=== PATIENT | female | born 1980 | race Caucasian/White ===

== ENCOUNTER 2017-06-10 00:52 | Emergency (ER) | payer SELFPAY ==
[~2017-06-10] VITALS: Ht 165.1 cm; Wt 125.2 kg
[~2017-06-10 00:52] MED LIST: ALBUTEROL0.5 % IN; AMOXIL500 MG OR; AUGMENTIN875 MG PO; BENTYL20 MG OR; CIPRO500 MG OR; ERYTHROMYCIN250 MG PO; FLEXERIL OR; FLINTSTONE1 OR; LORTAB 5 OR; LORTAB 7.5 OR; LORTAB5 OR; NAPROSYN500 MG PO; NEXIUM40 M1 OR; NO HOME MEDS; PRENATA7 OR; PREVACID30 M1 OR; PROAIR HFA IN; PYRIDIUM200 MG PO; SEASONALE OR; TRAMADOL HCL50 MG PO; ULTRACET OR; ULTRAM50 MG OR; ZOFRAN4 MG OR; ZPAK OR; [UNRECOGNIZED DRUG - SUPPLY] EX
[2017-06-10] MEDS ORDERED: NEURONTIN300 MG PO ×2 (01:01)
[2017-06-10] MEDS ORDERED: PERCOCET 10/31 COMBO PO (01:02)
[2017-06-10] MEDS ORDERED: REGLAN10 MG PO (01:02)
[2017-06-10] MEDS ORDERED: FLEXERIL PO (02:43)
[2017-06-10] MEDS ORDERED: ULTRAM50 M1 PO (02:43)
[2017-06-10 03:10] VITALS: BP 138/75
== END 2017-06-10 03:10 | disposition home or self-care (01) | DRG 552 ==
LOC: ED 00:52
DX: M47.812 Spondylosis without myelopathy or radiculopathy, cervical region (principal); F17.210 Nicotine dependence, cigarettes, uncomplicated; M47.816 Spondylosis without myelopathy or radiculopathy, lumbar region

== ENCOUNTER 2017-08-07 11:02 | Emergency (ER) | payer OTHER ==
[~2017-08-07] VITALS: Ht 165.1 cm; Wt 110.0 kg
[~2017-08-07 11:02] MED LIST changes: +FLEXERIL PO; +NEURONTIN300 MG PO; +PERCOCET 10/31 COMBO PO; +REGLAN10 MG PO; +ULTRAM50 M1 PO
[2017-08-07 11:51] LABS: URINE BILIRUBIN - DIPSTICK NEGATIVE (NEGATIVE); URINE BLOOD DIPSTICK LARGE (NEGATIVE); URINE COLOR YELLOW; URINE GLUCOSE - DIPSTICK NEGATIVE (NEGATIVE); URINE PH 7.5 (4.5-8.0); URINE PROTEIN - DIPSTICK 30 mg/dL (NEG-TRACE); URINE UROBILINOGEN - DIPSTICK 0.2 E.U./dL (0.2)
[2017-08-07 11:53] LABS: URINE CLARITY SL CLOUDY
[2017-08-07 11:54] LABS: URINE KETONE Negative (NEGATIVE); URINE LEUK ESTERASE SMALL (NEGATIVE); URINE NITRITE - DIPSTICK POSITIVE (Negative)
[2017-08-07 12:09] LABS: URINE BACTERIA MANY hpf; URINE EPITHELIAL CELLS MODERATE EPI/hpf (0-FEW); URINE WBC 20-50 WBC/hpf (0-5)
[2017-08-07] MEDS ORDERED: PYRIDIUM200 MG PO (12:39)
[2017-08-07] MEDS ORDERED: KEFLEX500 M1 PO (12:39)
[2017-08-07 13:26] VITALS: BP 139/94
== END 2017-08-07 13:27 | disposition home or self-care (01) | DRG 690 ==
LOC: ED 11:02
DX: N39.0 Urinary tract infection, site not specified (principal); B96.20 Unspecified Escherichia coli [E. coli] as the cause of diseases classified elsewhere; F17.210 Nicotine dependence, cigarettes, uncomplicated

== ENCOUNTER 2017-08-25 11:40 | Emergency (ER) | payer OTHER ==
[~2017-08-25] VITALS: Ht 162.6 cm; Wt 119.4 kg
[~2017-08-25 11:40] MED LIST changes: +KEFLEX500 M1 PO
[2017-08-25 13:05] LABS: IMMATURE GRANULOCYTES 0.4 % (0.0-1.0); MEAN CORPUSCULAR HGB 30.6 pG CALC (26.0-32.0); MEAN CORPUSCULAR HGB CONC 33.6 g/L CALC (32.0-36.0); NEUT# 6.78 thou/uL (2.00-7.15); RED BLOOD COUNT 4.9 mill/uL (4.20-5.60); RED CELL DISTRI WIDTH 12.7 % (11.5-15.5)
[2017-08-25 13:06] LABS: URINE BILIRUBIN - DIPSTICK NEGATIVE (NEGATIVE); URINE BLOOD DIPSTICK TRACE-LYSED (NEGATIVE); URINE COLOR YELLOW; URINE GLUCOSE - DIPSTICK NEGATIVE (NEGATIVE); URINE KETONE NEGATIVE (NEGATIVE); URINE LEUK ESTERASE NEGATIVE (NEGATIVE); URINE NITRITE - DIPSTICK NEGATIVE (Negative); URINE PROTEIN - DIPSTICK NEGATIVE (NEG-TRACE); URINE SPECIFIC GRAVITY <=1.005; URINE UROBILINOGEN - DIPSTICK 0.2 E.U./dL (0.2)
[2017-08-25 13:08] LABS: HEMATOCRIT 44.6 % (37.0-47.0); URINE CLARITY CLEAR
[2017-08-25 13:11] LABS: ALBUMIN 4.1 g/dL (3.2-5.0); ALKALINE PHOSPHATASE 62 u/l (38-126); ANION GAP 17 (6-22 (CALC)); BILIRUBIN, TOTAL 0.6 mg/dL (0.0-1.4); BUN 12 mg/dL (7-17); BUN/CREATININE RATIO 19 (12-20 (CALC)); CARBON DIOXIDE 22 mmol/l (22-30); CHLORIDE 108 mmol/l (95-108); CREATININE 0.7 mg/dL (0.5-1.0); GFR > 60 ML/MIN (>=60 (CALC)); GFR FOR AFR.AMER. > 60 ML/MIN (>=60 (CALC)); LIPASE 21 u/l (23-300); POTASSIUM 3.9 mmol/l (3.5-5.1); SGOT/AST 29 u/l (14-36); SGPT/ALT 43 u/l (9-52); SODIUM 143 mmol/l (137-146); TOTAL PROTEIN 7.4 g/dL (6.3-8.2)
[2017-08-25] MEDS ORDERED: REGLAN10 MG PO (14:05)
[2017-08-25 14:10] VITALS: BP 131/77
== END 2017-08-25 14:15 | disposition home or self-care (01) | DRG 392 ==
LOC: ED 11:40
PROVIDERS: Family Medicine
DX: K29.70 Gastritis, unspecified, without bleeding (principal); R10.13 Epigastric pain; R10.33 Periumbilical pain; R11.0 Nausea
CPT/HCPCS: Q9967; S0164

== ENCOUNTER 2017-09-27 21:10 | Emergency (ER) | payer OTHER ==
[~2017-09-27] VITALS: Ht 162.6 cm; Wt 120.2 kg
[2017-09-27] MEDS ORDERED: PERCOCET 10/31 COMBO PO (21:24)
[2017-09-27] MEDS ORDERED: FLEXERIL PO (21:43)
[2017-09-27 21:50] VITALS: BP 124/86
== END 2017-09-27 21:58 | disposition home or self-care (01) | DRG 563 ==
LOC: ED 21:10
DX: S29.012A Strain of muscle and tendon of back wall of thorax, initial encounter (principal); K75.81 Nonalcoholic steatohepatitis (NASH); K58.9 Irritable bowel syndrome, unspecified; F17.210 Nicotine dependence, cigarettes, uncomplicated; X50.0XXA Overexertion from strenuous movement or load, initial encounter; X50.9XXA Other and unspecified overexertion or strenuous movements or postures, initial encounter

== ENCOUNTER 2017-10-24 22:16 | Emergency (ER) | payer OTHER ==
[~2017-10-24] VITALS: Ht 162.6 cm; Wt 120.0 kg
[2017-10-25] MEDS ORDERED: FLEXERIL5 M1 PO (00:21)
[2017-10-25 00:33] VITALS: BP 129/68
[2017-10-26] MEDS ORDERED: PROPRANOLOL HCL20 MG PO (13:49)
== END 2017-10-25 00:42 | disposition home or self-care (01) ==
LOC: ED 22:16
DX: M54.12 Radiculopathy, cervical region (principal)

== ENCOUNTER 2017-10-26 13:30 | Emergency (ER) | payer OTHER ==
[~2017-10-26] VITALS: Ht 162.6 cm; Wt 120.5 kg
[~2017-10-26 13:30] MED LIST changes: +FLEXERIL5 M1 PO
[2017-10-26] MEDS ORDERED: PROPRANOLOL HCL20 MG PO (13:49)
[2017-10-26 14:23] LABS: URINE BILIRUBIN - DIPSTICK NEGATIVE (NEGATIVE); URINE BLOOD DIPSTICK NEGATIVE (NEGATIVE); URINE COLOR YELLOW; URINE GLUCOSE - DIPSTICK NEGATIVE (NEGATIVE); URINE KETONE NEGATIVE (NEGATIVE); URINE LEUK ESTERASE NEGATIVE (NEGATIVE); URINE NITRITE - DIPSTICK NEGATIVE (Negative); URINE PROTEIN - DIPSTICK NEGATIVE (NEG-TRACE); URINE SPECIFIC GRAVITY 1.025
[2017-10-26 14:24] LABS: URINE CLARITY CLEAR
[2017-10-26 14:31] LABS: BARBITURATES NEGATIVE (NEGATIVE); COCAINE NEGATIVE (NEGATIVE); METHADONE NEGATIVE (NEGATIVE); OXCYCODONE NEGATIVE (NEGATIVE); TETRAHYDROCANNABIONOL NEGATIVE (NEGATIVE); TRICYLIC ANTIDEPRESSANTS NEGATIVE (NEGATIVE)
[2017-10-26 14:43] LABS: HEMATOCRIT 41.9 % (37.0-47.0); HEMOGLOBIN 13.9 g/dl (12.0-16.0); IMMATURE GRANULOCYTES 0.1 % (0.0-5.0); MEAN CELL VOLUME 92.1 fL CALC (80.0-100.0); MEAN CORPUSCULAR HGB 30.5 pG CALC (26.0-32.0); MEAN CORPUSCULAR HGB CONC 33.2 g/L CALC (32.0-36.0); NEUT# 4.35 thou/uL (2.00-7.15); RED BLOOD COUNT 4.55 mill/uL (4.20-5.60)
[2017-10-26 14:49] LABS: ALKALINE PHOSPHATASE 47 u/l (38-126); BILIRUBIN, TOTAL 1.2 mg/dL (0.0-1.4); BUN 15 mg/dL (7-17); BUN/CREATININE RATIO 23 (12-20 (CALC)); CARBON DIOXIDE 24 mmol/l (22-30); CHLORIDE 108 mmol/l (95-108); CREATININE 0.6 mg/dL (0.5-1.0); GFR > 60 ML/MIN (>=60 (CALC)); GFR FOR AFR.AMER. > 60 ML/MIN (>=60 (CALC)); SGOT/AST 46 u/l (14-36); SGPT/ALT 34 u/l (9-52); SODIUM 140 mmol/l (137-146); TOTAL PROTEIN 6.9 g/dL (6.3-8.2)
[2017-10-26 14:57] LABS: MYOGLOBIN 20 ng/mL (0 - 62)
[2017-10-26 15:00] LABS: ANION GAP 13 (6-22 (CALC))
[2017-10-26 15:52] VITALS: BP 108/63
[2017-10-26 16:42] LABS: POTASSIUM 4.7 mmol/l (3.5-5.1)
== END 2017-10-26 15:54 | disposition home or self-care (01) ==
LOC: ED 13:30
DX: R05 Cough (principal); R09.81 Nasal congestion; R42 Dizziness and giddiness; F17.210 Nicotine dependence, cigarettes, uncomplicated

== ENCOUNTER 2017-12-31 22:59 | Emergency (ER) | payer MEDICAID ==
[~2017-12-31] VITALS: Ht 162.6 cm; Wt 122.7 kg
[~2017-12-31 22:59] MED LIST changes: +PROPRANOLOL HCL20 MG PO
[2017-12-31] MEDS ORDERED: KLONOPIN0.5 MG PO (23:09)
[2018-01-01 00:01] LABS: INFLUENZA A NONE DETECTED (NONE DETECT); INFLUENZA B NONE DETECTED (NONE DETECT)
[2018-01-01] MEDS ORDERED: AMOXICILLIN500 MG PO (00:18)
[2018-01-01] MEDS ORDERED: ROBITUSSIN AC10 ML PO (00:18)
[2018-01-01 00:20] VITALS: BP 135/80
== END 2018-01-01 00:26 | disposition home or self-care (01) ==
LOC: ED 22:59
PROVIDERS: Emergency Medicine
DX: J02.9 Acute pharyngitis, unspecified (principal); J06.9 Acute upper respiratory infection, unspecified; R05 Cough; F17.210 Nicotine dependence, cigarettes, uncomplicated; R50.9 Fever, unspecified

== ENCOUNTER 2018-01-19 07:51 | Emergency (ER) | payer MEDICAID ==
[~2018-01-19] VITALS: Ht 162.6 cm; Wt 118.2 kg
[~2018-01-19 07:51] MED LIST changes: +AMOXICILLIN500 MG PO; +KLONOPIN0.5 MG PO; +ROBITUSSIN AC10 ML PO
[2018-01-19] MEDS ORDERED: PAXIL40 MG PO (08:03)
[2018-01-19] MEDS ORDERED: SINEQUAN10 MG PO (08:03)
[2018-01-19] MEDS ORDERED: VOLTAREN1%GEL TOP (08:41)
[2018-01-19 08:45] VITALS: BP 114/69
== END 2018-01-19 09:02 | disposition home or self-care (01) ==
LOC: ED 07:51
DX: S46.911A Strain of unspecified muscle, fascia and tendon at shoulder and upper arm level, right arm, initial encounter (principal); X58.XXXA Exposure to other specified factors, initial encounter; Y93.89 Activity, other specified; Y92.238 Other place in hospital as the place of occurrence of the external cause

== ENCOUNTER 2018-05-17 09:33 | Emergency (ER) | payer MEDICAID ==
[~2018-05-17] VITALS: Ht 162.6 cm; Wt 1000.0 kg
[~2018-05-17 09:33] MED LIST changes: +AUGMENTIN500TAB PO; +CELEBREX200 M1; +HYDROCODONE/ACE1 TAB PO; +MIRALAX3350 N1 PO; +PAXIL40 MG PO; +PROVENTIL108 MCG/AC; +SINEQUAN10 MG PO; +VOLTAREN1%GEL TOP
[2018-05-17] MEDS ORDERED: PAXIL40 MG PO (10:05)
[2018-05-17] MEDS ORDERED: DOXEPIN HCL25 MG PO (10:06)
[2018-05-17] MEDS ORDERED: KLONOPIN1 MG PO (10:06)
[2018-05-17] MEDS ORDERED: ADVAIR DISK1 IN (10:14)
[2018-05-17] MEDS ORDERED: CELECOXIB200 MG PO (10:15)
[2018-05-17] MEDS ORDERED: DIFLUCAN150 MG PO (10:26)
[2018-05-17] MEDS ORDERED: TORADOL PO (10:26)
[2018-05-17] MEDS ORDERED: METRONIDAZOL500 MG PO (10:26)
[2018-05-17] MEDS ORDERED: CORTISPORIN OTI10 M2 AS (10:26)
[2018-05-17 10:36] VITALS: BP 130/76
[2018-06-11] MEDS ORDERED: AMBIEN5 MG PO (09:09)
[2018-06-11] MEDS ORDERED: HYDROCODONE/ACE1 TAB PO (09:31)
== END 2018-05-17 10:45 | disposition home or self-care (01) ==
LOC: ED 09:33
DX: H92.02 Otalgia, left ear (principal); N76.0 Acute vaginitis; K75.81 Nonalcoholic steatohepatitis (NASH); F17.200 Nicotine dependence, unspecified, uncomplicated; Z85.41 Personal history of malignant neoplasm of cervix uteri

== ENCOUNTER → 2018-06-11 | Outpatient (REF) | payer MEDICAID ==
[~2018-06-11] MED LIST changes: +ADVAIR DISK1 IN; +AMBIEN5 MG PO; +CELECOXIB200 MG PO; +CORTISPORIN OTI10 M2 AS; +DIFLUCAN150 MG PO; +DOXEPIN HCL25 MG PO; +KLONOPIN1 MG PO; +METRONIDAZOL500 MG PO; +TORADOL PO
[2018-06-11 09:13] VITALS: BP 147/82
== END | disposition home or self-care (01) | DRG 951 ==
LOC: PAIN/MGT 08:50
PROVIDERS: ATTEND Anesthesiology Pain Medicine
DX: Z09 Encounter for follow-up examination after completed treatment for conditions other than malignant neoplasm (principal)

== ENCOUNTER 2018-06-26 23:54 | Emergency (ER) | payer OTHER ==
[~2018-06-26] VITALS: Ht 162.6 cm; Wt 120.0 kg
[2018-06-27 00:45] LABS: HEMATOCRIT 40.4 % (37.0-47.0); HEMOGLOBIN 13.3 g/dl (12.0-16.0); IMMATURE GRANULOCYTES 0.4 % (0.0-5.0); MEAN CELL VOLUME 92.4 fL CALC (80.0-100.0); MEAN CORPUSCULAR HGB 30.4 pG CALC (26.0-32.0); MEAN CORPUSCULAR HGB CONC 32.9 g/L CALC (32.0-36.0); NEUT# 8.6 thou/uL (2.00-7.15); RED BLOOD COUNT 4.37 mill/uL (4.20-5.60); RED CELL DISTRI WIDTH 12.7 % (11.5-15.5)
[2018-06-27 01:00] LABS: ALBUMIN 3.9 g/dL (3.2-5.0); ALKALINE PHOSPHATASE 61 u/l (38-126); ANION GAP 14 (6-22 (CALC)); BILIRUBIN, TOTAL 0.2 mg/dL (0.0-1.4); BUN 16 mg/dL (7-17); BUN/CREATININE RATIO 21 (12-20 (CALC)); CARBON DIOXIDE 23 mmol/l (22-30); CHLORIDE 109 mmol/l (95-108); CREATININE 0.8 mg/dL (0.5-1.0); GFR > 60 ML/MIN (>=60 (CALC)); GFR FOR AFR.AMER. > 60 ML/MIN (>=60 (CALC)); POTASSIUM 3.8 mmol/l (3.5-5.1); SGOT/AST 17 u/l (14-36); SODIUM 142 mmol/l (137-146); TOTAL PROTEIN 6.4 g/dL (6.3-8.2)
[2018-06-27 11:30] VITALS: BP 137/65
== END 2018-06-27 11:30 | disposition short-term general hospital (02) ==
LOC: ED 23:54
PROVIDERS: Emergency Medicine
DX: S86.912A Strain of unspecified muscle(s) and tendon(s) at lower leg level, left leg, initial encounter (principal); M79.18 Myalgia, other site; R22.42 Localized swelling, mass and lump, left lower limb; X50.1XXA Overexertion from prolonged static or awkward postures, initial encounter; W01.0XXA Fall on same level from slipping, tripping and stumbling without subsequent striking against object, initial encounter; Y92.009 Unspecified place in unspecified non-institutional (private) residence as the place of occurrence of the external cause

== ENCOUNTER 2018-09-22 19:36 | Emergency (ER) | payer MEDICAID ==
[~2018-09-22] VITALS: Ht 162.6 cm; Wt 121.0 kg
[~2018-09-22 19:36] MED LIST changes: +DEPO-PROVER150 MG/ML IM
[2018-09-22 20:15] LABS: URINE BILIRUBIN - DIPSTICK NEGATIVE (NEGATIVE); URINE BLOOD DIPSTICK NEGATIVE (NEGATIVE); URINE COLOR YELLOW; URINE GLUCOSE - DIPSTICK NEGATIVE (NEGATIVE); URINE KETONE NEGATIVE (NEGATIVE); URINE LEUK ESTERASE NEGATIVE (NEGATIVE); URINE NITRITE - DIPSTICK NEGATIVE (Negative); URINE PROTEIN - DIPSTICK NEGATIVE (NEG-TRACE)
[2018-09-22 20:19] LABS: HEMATOCRIT 43.5 % (37.0-47.0); HEMOGLOBIN 14.3 g/dl (12.0-16.0); IMMATURE GRANULOCYTES 0.4 % (0.0-5.0); MEAN CORPUSCULAR HGB 30.2 pG CALC (26.0-32.0); MEAN CORPUSCULAR HGB CONC 32.9 g/L CALC (32.0-36.0); NEUT# 6.61 thou/uL (2.00-7.15); RED BLOOD COUNT 4.73 mill/uL (4.20-5.60); RED CELL DISTRI WIDTH 12.7 % (11.5-15.5)
[2018-09-22 20:28] LABS: ALBUMIN 4.3 g/dL (3.2-5.0); ALKALINE PHOSPHATASE 63 u/l (38-126); AMYLASE 63 u/l (30-110); ANION GAP 14 (6-22 (CALC)); BILIRUBIN, TOTAL 0.4 mg/dL (0.0-1.4); BUN 14 mg/dL (7-17); BUN/CREATININE RATIO 22 (12-20 (CALC)); CARBON DIOXIDE 23 mmol/l (22-30); CHLORIDE 108 mmol/l (95-108); CREATININE 0.6 mg/dL (0.5-1.0); GFR > 60 ML/MIN (>=60 (CALC)); GFR FOR AFR.AMER. > 60 ML/MIN (>=60 (CALC)); LIPASE 25 u/l (23-300); POTASSIUM 3.9 mmol/l (3.5-5.1); SGOT/AST 24 u/l (14-36); SODIUM 142 mmol/l (137-146); TOTAL PROTEIN 7.1 g/dL (6.3-8.2)
[2018-09-22] MEDS ORDERED: PROTONIX40 MG PO (22:48)
[2018-09-22 23:00] VITALS: BP 123/76
== END 2018-09-22 23:05 | disposition home or self-care (01) ==
LOC: ED 19:36
PROVIDERS: Emergency Medicine
DX: R10.10 Upper abdominal pain, unspecified (principal); K86.1 Other chronic pancreatitis; K75.81 Nonalcoholic steatohepatitis (NASH); F17.210 Nicotine dependence, cigarettes, uncomplicated; R11.2 Nausea with vomiting, unspecified

== ENCOUNTER 2018-10-06 12:13 | Emergency (ER) | payer OTHER ==
[~2018-10-06] VITALS: Ht 162.6 cm; Wt 110.0 kg
[~2018-10-06 12:13] MED LIST changes: +PROTONIX40 MG PO
[2018-10-06] MEDS ORDERED: ULTRAM50 M1 PO (12:43)
[2018-10-06 12:44] VITALS: BP 144/77
== END 2018-10-06 12:58 | disposition home or self-care (01) ==
LOC: ED 12:13
DX: S50.11XA Contusion of right forearm, initial encounter (principal); F17.200 Nicotine dependence, unspecified, uncomplicated; W01.198A Fall on same level from slipping, tripping and stumbling with subsequent striking against other object, initial encounter; Y92.009 Unspecified place in unspecified non-institutional (private) residence as the place of occurrence of the external cause

== ENCOUNTER 2018-10-24 17:39 | Emergency (ER) | payer MEDICAID ==
[~2018-10-24] VITALS: Ht 162.6 cm; Wt 125.0 kg
[2018-10-24 18:03] LABS: GFR > 60 ML/MIN (>=60 (CALC)); GFR FOR AFR.AMER. > 60 ML/MIN (>=60 (CALC))
[2018-10-24 18:05] LABS: HEMATOCRIT 43.1 % (37.0-47.0); HEMOGLOBIN 14.2 g/dl (12.0-16.0); IMMATURE GRANULOCYTES 0.3 % (0.0-5.0); MEAN CELL VOLUME 91.3 fL CALC (80.0-100.0); MEAN CORPUSCULAR HGB 30.1 pG CALC (26.0-32.0); MEAN CORPUSCULAR HGB CONC 32.9 g/L CALC (32.0-36.0); NEUT# 4.86 thou/uL (2.00-7.15); RED BLOOD COUNT 4.72 mill/uL (4.20-5.60); RED CELL DISTRI WIDTH 12.6 % (11.5-15.5)
[2018-10-24 18:19] LABS: ALBUMIN 4.3 g/dL (3.2-5.0); ALKALINE PHOSPHATASE 58 u/l (38-126); ANION GAP 13 (6-22 (CALC)); BUN 12 mg/dL (7-17); BUN/CREATININE RATIO 13 (12-20 (CALC)); CARBON DIOXIDE 25 mmol/l (22-30); CHLORIDE 108 mmol/l (95-108); CREATININE 0.9 mg/dL (0.5-1.0); GFR > 60 ML/MIN (>=60 (CALC)); GFR FOR AFR.AMER. > 60 ML/MIN (>=60 (CALC)); POTASSIUM 3.7 mmol/l (3.5-5.1); SGOT/AST 19 u/l (14-36); SODIUM 143 mmol/l (137-146); TOTAL PROTEIN 7.7 g/dL (6.3-8.2)
[2018-10-24 18:21] LABS: BILIRUBIN, TOTAL 0.2 mg/dL (0.0-1.4)
[2018-10-24 18:24] LABS: ACT PARTIAL THROMBO TIME 24.7 SECONDS (20.0-32.5)
[2018-10-24 18:31] LABS: MYOGLOBIN 19 ng/mL (0 - 62)
[2018-10-24 19:53] LABS: URINE BILIRUBIN - DIPSTICK NEGATIVE (NEGATIVE); URINE BLOOD DIPSTICK NEGATIVE (NEGATIVE); URINE COLOR YELLOW; URINE GLUCOSE - DIPSTICK NEGATIVE (NEGATIVE); URINE KETONE NEGATIVE (NEGATIVE); URINE LEUK ESTERASE NEGATIVE (NEGATIVE); URINE NITRITE - DIPSTICK NEGATIVE (Negative); URINE PH 5.5 (4.5-8.0); URINE PROTEIN - DIPSTICK NEGATIVE (NEG-TRACE); URINE UROBILINOGEN - DIPSTICK 0.2 E.U./dL (0.2)
[2018-10-24 20:42] VITALS: BP 107/55
== END 2018-10-24 20:33 | disposition short-term general hospital (02) ==
LOC: ED 17:39
PROVIDERS: Family Medicine
DX: R47.81 Slurred speech (principal); R53.1 Weakness; R29.810 Facial weakness; M79.601 Pain in right arm; Z85.41 Personal history of malignant neoplasm of cervix uteri; K58.9 Irritable bowel syndrome, unspecified; F17.200 Nicotine dependence, unspecified, uncomplicated
CPT/HCPCS: Q9967

== ENCOUNTER 2018-10-28 22:12 | Emergency (ER) | payer MEDICAID ==
[~2018-10-28] VITALS: Ht 162.6 cm; Wt 122.7 kg
[2018-10-28] MEDS ORDERED: FIORICET PO (23:31)
[2018-10-28 23:47] LABS: URINE BILIRUBIN - DIPSTICK NEGATIVE (NEGATIVE); URINE BLOOD DIPSTICK NEGATIVE (NEGATIVE); URINE COLOR YELLOW; URINE GLUCOSE - DIPSTICK NEGATIVE (NEGATIVE); URINE KETONE NEGATIVE (NEGATIVE); URINE LEUK ESTERASE NEGATIVE (NEGATIVE); URINE NITRITE - DIPSTICK NEGATIVE (Negative); URINE PROTEIN - DIPSTICK NEGATIVE (NEG-TRACE); URINE UROBILINOGEN - DIPSTICK 0.2 E.U./dL (0.2)
[2018-10-28 23:51] VITALS: BP 128/69
== END 2018-10-28 23:51 | disposition home or self-care (01) ==
LOC: ED 22:12
PROVIDERS: Emergency Medicine
DX: G43.909 Migraine, unspecified, not intractable, without status migrainosus (principal); F17.200 Nicotine dependence, unspecified, uncomplicated; Z86.73 Personal history of transient ischemic attack (TIA), and cerebral infarction without residual deficits

== ENCOUNTER 2019-01-06 07:41 | Emergency (ER) | payer OTHER ==
[~2019-01-06] VITALS: Ht 162.6 cm; Wt 110.0 kg
[~2019-01-06 07:41] MED LIST changes: +FIORICET PO; +IMITREX100 M1 PO; +PERCOCET1 TA4 PO
[2019-01-06] MEDS ORDERED: AMOXICILLIN500 M2 PO (08:36)
[2019-01-06] MEDS ORDERED: DIFLUCAN150 MG PO (08:46)
[2019-01-06 09:00] VITALS: BP 123/66
[2019-01-07] MEDS ORDERED: PERCOCET1 TA4 PO (09:46)
[2019-01-07] MEDS ORDERED: DECADRON4 MG PO (11:28)
== END 2019-01-06 09:00 | disposition home or self-care (01) ==
LOC: ED 07:41
DX: J02.0 Streptococcal pharyngitis (principal); K75.81 Nonalcoholic steatohepatitis (NASH); F17.200 Nicotine dependence, unspecified, uncomplicated; Z86.73 Personal history of transient ischemic attack (TIA), and cerebral infarction without residual deficits
CPT/HCPCS: J0561

== ENCOUNTER 2019-01-08 17:50 | Emergency (ER) | payer OTHER ==
[~2019-01-08] VITALS: Ht 162.6 cm; Wt 120.0 kg
[~2019-01-08 17:50] MED LIST changes: +AMOXICILLIN500 M2 PO; +DECADRON4 MG PO
[2019-01-08] MEDS ORDERED: FAMOTIDINE40 M1 PO (18:21)
[2019-01-08] MEDS ORDERED: INDERAL LA60 MG PO (18:21)
[2019-01-08] MEDS ORDERED: REMERON15 MG PO (18:22)
[2019-01-08] MEDS ORDERED: KLONOPIN1 MG PO (18:22)
[2019-01-08] MEDS ORDERED: MIRALAX3350 N1 PO (18:23)
[2019-01-08] MEDS ORDERED: FLEXERIL PO (18:23)
[2019-01-08] MEDS ORDERED: CELEBREX200 MG PO (18:24)
[2019-01-08] MEDS ORDERED: ADVAIR DISK1 INH (18:24)
[2019-01-08] MEDS ORDERED: ALBUTERO3 IN (18:24)
[2019-01-08] MEDS ORDERED: GABAPENTIN400 M2 PO (18:25)
[2019-01-08] MEDS ORDERED: REGLAN10 MG PO (18:26)
[2019-01-08 18:33] LABS: HEMATOCRIT 39.6 % (37.0-47.0); HEMOGLOBIN 13.1 g/dl (12.0-16.0); IMMATURE GRANULOCYTES 0.7 % (0.0-5.0); MEAN CELL VOLUME 90.4 fL CALC (80.0-100.0); MEAN CORPUSCULAR HGB 29.9 pG CALC (26.0-32.0); MEAN CORPUSCULAR HGB CONC 33.1 g/L CALC (32.0-36.0); NEUT# 14.59 thou/uL (2.00-7.15); RED BLOOD COUNT 4.38 mill/uL (4.20-5.60)
[2019-01-08 18:42] LABS: ALBUMIN 4.3 g/dL (3.2-5.0); ALKALINE PHOSPHATASE 85 u/l (38-126); AMYLASE 32 u/l (30-110); ANION GAP 15 (6-22 (CALC)); BILIRUBIN, TOTAL 0.4 mg/dL (0.0-1.4); BUN 15 mg/dL (7-17); BUN/CREATININE RATIO 21 (12-20 (CALC)); CARBON DIOXIDE 22 mmol/l (22-30); CHLORIDE 108 mmol/l (95-108); CREATININE 0.7 mg/dL (0.5-1.0); GFR > 60 ML/MIN (>=60 (CALC)); GFR FOR AFR.AMER. > 60 ML/MIN (>=60 (CALC)); LIPASE 16 u/l (23-300); POTASSIUM 4.1 mmol/l (3.5-5.1); SGOT/AST 22 u/l (14-36); SODIUM 141 mmol/l (137-146); TOTAL PROTEIN 7.4 g/dL (6.3-8.2)
[2019-01-08 18:59] LABS: URINE BLOOD DIPSTICK MODERATE (NEGATIVE); URINE GLUCOSE - DIPSTICK NEGATIVE (NEGATIVE); URINE KETONE TRACE mg/dL (NEGATIVE); URINE LEUK ESTERASE NEGATIVE (NEGATIVE); URINE NITRITE - DIPSTICK NEGATIVE (Negative); URINE PROTEIN - DIPSTICK 30 mg/dL (NEG-TRACE); URINE SPECIFIC GRAVITY >=1.030
[2019-01-08 19:00] LABS: URINE BILIRUBIN - DIPSTICK NEGATIVE (NEGATIVE); URINE COLOR AMBER
[2019-01-08 19:13] LABS: URINE CALCIUM OXALATE CRYSTALS FEW lpf; URINE SQUAMOUS EPITHELIAL CELL FEW EPI/hpf (0-FEW); URINE WBC 0-2 WBC/hpf (0-5)
[2019-01-08 19:27] LABS: COCAINE NEGATIVE (NEGATIVE); METHADONE NEGATIVE (NEGATIVE); TETRAHYDROCANNABIONOL NEGATIVE (NEGATIVE)
[2019-01-08 19:28] LABS: BARBITURATES NEGATIVE (NEGATIVE); OXCYCODONE POSITIVE (NEGATIVE); TRICYLIC ANTIDEPRESSANTS POSITIVE (NEGATIVE)
[2019-01-08 19:44] LABS: TSH, 3RD GENERATION 0.27 uIU/mL (0.47 - 4.68)
[2019-01-08] MEDS ORDERED: ROBITUSSIN AC10 ML PO (20:22)
[2019-01-08 21:20] VITALS: BP 130/60
== END 2019-01-08 21:20 | disposition home or self-care (01) ==
LOC: ED 17:50
PROVIDERS: Emergency Medicine; Family Medicine
DX: R00.2 Palpitations (principal); J02.9 Acute pharyngitis, unspecified; F17.210 Nicotine dependence, cigarettes, uncomplicated

== ENCOUNTER 2019-01-12 17:53 | Emergency (ER) | payer OTHER ==
[~2019-01-12] VITALS: Ht 162.6 cm; Wt 121.0 kg
[~2019-01-12 17:53] MED LIST changes: +ADVAIR DISK1 INH; +ALBUTERO3 IN; +CELEBREX200 MG PO; +FAMOTIDINE40 M1 PO; +GABAPENTIN400 M2 PO; +INDERAL LA60 MG PO; +REMERON15 MG PO
[2019-01-12] MEDS ORDERED: CLINDAMYCIN300 M1 PO (19:03)
[2019-01-12 19:10] VITALS: BP 159/82
== END 2019-01-12 19:11 | disposition home or self-care (01) ==
LOC: ED 17:53
DX: R51 Headache (principal); L02.91 Cutaneous abscess, unspecified; K75.81 Nonalcoholic steatohepatitis (NASH); F17.210 Nicotine dependence, cigarettes, uncomplicated; Z86.14 Personal history of Methicillin resistant Staphylococcus aureus infection; Z86.73 Personal history of transient ischemic attack (TIA), and cerebral infarction without residual deficits

== ENCOUNTER 2019-01-17 07:59 | Emergency (ER) | payer OTHER ==
[~2019-01-17] VITALS: Ht 162.6 cm; Wt 125.0 kg
[~2019-01-17 07:59] MED LIST changes: +CLINDAMYCIN300 M1 PO
[2019-01-17 08:20] LABS: HEMATOCRIT 41.4 % (37.0-47.0); HEMOGLOBIN 13.6 g/dl (12.0-16.0); IMMATURE GRANULOCYTES 0.4 % (0.0-5.0); MEAN CORPUSCULAR HGB 29.6 pG CALC (26.0-32.0); MEAN CORPUSCULAR HGB CONC 32.9 g/L CALC (32.0-36.0); NEUT# 6.88 thou/uL (2.00-7.15); RED BLOOD COUNT 4.6 mill/uL (4.20-5.60); RED CELL DISTRI WIDTH 13.1 % (11.5-15.5)
[2019-01-17 08:41] LABS: ANION GAP 14 (6-22 (CALC)); BUN 13 mg/dL (7-17); BUN/CREATININE RATIO 17 (12-20 (CALC)); CARBON DIOXIDE 23 mmol/l (22-30); CHLORIDE 106 mmol/l (95-108); CREATININE 0.8 mg/dL (0.5-1.0); GFR > 60 ML/MIN (>=60 (CALC)); GFR FOR AFR.AMER. > 60 ML/MIN (>=60 (CALC)); POTASSIUM 4.5 mmol/l (3.5-5.1); SODIUM 138 mmol/l (137-146)
[2019-01-17] MEDS ORDERED: GABAPENTIN100 MG PO (12:10)
[2019-01-17] MEDS ORDERED: ONDANSETRON4 MG PO (13:45)
[2019-01-17 14:23] VITALS: BP 108/57
== END 2019-01-17 14:23 | disposition home or self-care (01) ==
LOC: ED 07:59
PROVIDERS: Family Medicine
DX: K29.70 Gastritis, unspecified, without bleeding (principal); F17.210 Nicotine dependence, cigarettes, uncomplicated
CPT/HCPCS: J1610; Q9967

== ENCOUNTER 2019-01-23 22:00 | Emergency (ER) | payer OTHER ==
[~2019-01-23] VITALS: Ht 162.6 cm; Wt 100.0 kg
[~2019-01-23 22:00] MED LIST changes: +GABAPENTIN100 MG PO; +ONDANSETRON4 MG PO
[2019-01-23 23:10] LABS: URINE BILIRUBIN - DIPSTICK NEGATIVE (NEGATIVE); URINE BLOOD DIPSTICK NEGATIVE (NEGATIVE); URINE COLOR YELLOW; URINE GLUCOSE - DIPSTICK NEGATIVE (NEGATIVE); URINE KETONE NEGATIVE (NEGATIVE); URINE LEUK ESTERASE NEGATIVE (NEGATIVE); URINE NITRITE - DIPSTICK NEGATIVE (Negative); URINE PROTEIN - DIPSTICK NEGATIVE (NEG-TRACE); URINE SPECIFIC GRAVITY >=1.030; URINE UROBILINOGEN - DIPSTICK 0.2 E.U./dL (0.2)
[2019-01-23 23:30] VITALS: BP 138/82
== END 2019-01-23 23:33 | disposition home or self-care (01) ==
LOC: ED 22:00
PROVIDERS: Emergency Medicine
DX: K43.9 Ventral hernia without obstruction or gangrene (principal); F17.210 Nicotine dependence, cigarettes, uncomplicated

== ENCOUNTER 2019-02-05 18:25 | Emergency (ER) | payer OTHER ==
[~2019-02-05] VITALS: Ht 162.6 cm; Wt 125.0 kg
[2019-02-05] MEDS ORDERED: LINZESS145 MCG PO (18:50)
[2019-02-05] MEDS ORDERED: OXYCODONE10 M1 PO (18:54)
[2019-02-05] MEDS ORDERED: DIFLUCAN150 MG PO (18:59)
[2019-02-05] MEDS ORDERED: CEPHALEXIN500 M1 PO (18:59)
[2019-02-05] MEDS ORDERED: ZITHROMAX250 MG PO (18:59)
[2019-02-05 19:24] VITALS: BP 130/82
[2019-03-04] MEDS ORDERED: PERCOCET1 TA4 PO (09:23)
[2019-04-08] MEDS ORDERED: PERCOCET1 TA4 PO (10:06)
== END 2019-02-05 19:24 | disposition home or self-care (01) ==
LOC: ED 18:25
DX: S50.812A Abrasion of left forearm, initial encounter (principal); L98.9 Disorder of the skin and subcutaneous tissue, unspecified; L08.9 Local infection of the skin and subcutaneous tissue, unspecified; F17.210 Nicotine dependence, cigarettes, uncomplicated; W55.03XA Scratched by cat, initial encounter; Z86.14 Personal history of Methicillin resistant Staphylococcus aureus infection

== ENCOUNTER 2019-02-08 23:30 | Emergency (ER) | payer OTHER ==
[~2019-02-08] VITALS: Ht 162.6 cm; Wt 125.0 kg
[~2019-02-08 23:30] MED LIST changes: +CEPHALEXIN500 M1 PO; +LINZESS145 MCG PO; +OXYCODONE10 M1 PO; +ZITHROMAX250 MG PO
[2019-02-09] MEDS ORDERED: IBUPROFEN600 MG PO (01:57)
[2019-02-09] MEDS ORDERED: CLINDAMYCIN300 M1 PO (01:57)
[2019-02-09] MEDS ORDERED: KEFLEX500 M1 PO (01:59)
[2019-02-09 02:20] VITALS: BP 115/65
[2019-03-04] MEDS ORDERED: PERCOCET1 TA4 PO (09:23)
[2019-04-08] MEDS ORDERED: PERCOCET1 TA4 PO (10:06)
== END 2019-02-09 02:19 | disposition home or self-care (01) ==
LOC: ED 23:30
DX: N76.4 Abscess of vulva (principal)

== ENCOUNTER 2019-05-13 | Emergency (ER) | payer OTHER ==
[~2019-05-13] MED LIST changes: +IBUPROFEN600 MG PO
[2019-05-13] MEDS ORDERED: METHOTREXATE2.5 M2 PO (09:49)
[2019-05-13] MEDS ORDERED: ATIVAN1 MG PO (09:49)
[2019-05-13] MEDS ORDERED: PERCOCET1 TA4 PO (10:31)
[2019-05-13] MEDS ORDERED: ZOFRAN4 M1 PO (20:42)
[2019-05-13] MEDS ORDERED: FIORICET PO (20:42)
[2019-06-10] MEDS ORDERED: OXYCODO-APAP1 TA2 PO (09:28)
[2019-07-08] MEDS ORDERED: OXYCODO-APAP1 TA2 PO (09:29)
[2019-08-05] MEDS ORDERED: KEPPRA250 M1 PO (08:47)
[2019-08-05] MEDS ORDERED: TOPIRAMATE50 MG PO (08:48)
[2019-08-05] MEDS ORDERED: OXYCODO-APAP1 TA2 PO (09:52)
[2019-09-02] MEDS ORDERED: OXYCODO-APAP1 TA2 PO (09:43)
[2019-09-30] MEDS ORDERED: OXYCODO-APAP1 TA2 PO (10:00)
[2019-11-11] MEDS ORDERED: OXYCODO-APAP1 TA2 PO (10:16)
[2019-12-09] MEDS ORDERED: OXYCODO-APAP1 TA2 PO (10:07)
[2020-01-06] MEDS ORDERED: OXYCODO-APAP1 TA2 PO (10:12)
== END 2019-05-13 21:07 | disposition home or self-care (01) ==
DX: G43.909 Migraine, unspecified, not intractable, without status migrainosus (principal); F17.290 Nicotine dependence, other tobacco product, uncomplicated

== ENCOUNTER 2019-05-27 | Emergency (ER) | payer OTHER ==
[~2019-05-27] MED LIST changes: +ATIVAN1 MG PO; +METHOTREXATE2.5 M2 PO; +ZOFRAN4 M1 PO
[2019-05-27 13:09] LABS: URINE BILIRUBIN - DIPSTICK NEGATIVE (NEGATIVE); URINE BLOOD DIPSTICK SMALL (NEGATIVE); URINE COLOR YELLOW; URINE GLUCOSE - DIPSTICK NEGATIVE (NEGATIVE); URINE KETONE NEGATIVE (NEGATIVE); URINE LEUK ESTERASE NEGATIVE (NEGATIVE); URINE NITRITE - DIPSTICK NEGATIVE (Negative); URINE PROTEIN - DIPSTICK NEGATIVE (NEG-TRACE); URINE SPECIFIC GRAVITY 1.025; URINE UROBILINOGEN - DIPSTICK 0.2 E.U./dL (0.2)
[2019-05-27 13:17] LABS: URINE RBC 0-2 RBC/hpf (0-5); URINE WBC 0-2 WBC/hpf (0-5)
[2019-05-27 13:22] LABS: HEMATOCRIT 41.6 % (37.0-47.0); HEMOGLOBIN 14.2 g/dl (12.0-16.0); IMMATURE GRANULOCYTES 0.3 % (0.0-5.0); MEAN CELL VOLUME 88.7 fL CALC (80.0-100.0); MEAN CORPUSCULAR HGB 30.3 pG CALC (26.0-32.0); MEAN CORPUSCULAR HGB CONC 34.1 g/L CALC (32.0-36.0); NEUT# 8.34 thou/uL (2.00-7.15); RED BLOOD COUNT 4.69 mill/uL (4.20-5.60); RED CELL DISTRI WIDTH 12.6 % (11.5-15.5)
[2019-05-27 13:40] LABS: ALKALINE PHOSPHATASE 57 u/l (38-126); ANION GAP 11 (6-22 (CALC)); BUN 10 mg/dL (7-17); BUN/CREATININE RATIO 16 (12-20 (CALC)); CARBON DIOXIDE 25 mmol/l (22-30); CHLORIDE 107 mmol/l (95-108); CREATININE 0.6 mg/dL (0.5-1.0); GFR > 60 ML/MIN (>=60 (CALC)); GFR FOR AFR.AMER. > 60 ML/MIN (>=60 (CALC)); LIPASE 40 u/l (23-300); SGOT/AST 26 u/l (14-36); SODIUM 138 mmol/l (137-146); TOTAL PROTEIN 6.8 g/dL (6.3-8.2)
[2019-05-27 13:42] LABS: BILIRUBIN, TOTAL 0.6 mg/dL (0.0-1.4)
[2019-05-27] MEDS ORDERED: ONDANSETRON4 MG PO (14:54)
[2019-05-27] MEDS ORDERED: OMEPRAZOLE20 M2 PO (14:54)
[2019-06-10] MEDS ORDERED: OXYCODO-APAP1 TA2 PO (09:28)
[2019-07-08] MEDS ORDERED: OXYCODO-APAP1 TA2 PO (09:29)
[2019-08-05] MEDS ORDERED: KEPPRA250 M1 PO (08:47)
[2019-08-05] MEDS ORDERED: TOPIRAMATE50 MG PO (08:48)
[2019-08-05] MEDS ORDERED: OXYCODO-APAP1 TA2 PO (09:52)
[2019-09-02] MEDS ORDERED: OXYCODO-APAP1 TA2 PO (09:43)
[2019-09-30] MEDS ORDERED: OXYCODO-APAP1 TA2 PO (10:00)
[2019-11-11] MEDS ORDERED: OXYCODO-APAP1 TA2 PO (10:16)
[2019-12-09] MEDS ORDERED: OXYCODO-APAP1 TA2 PO (10:07)
[2020-01-06] MEDS ORDERED: OXYCODO-APAP1 TA2 PO (10:12)
== END 2019-05-27 15:50 | disposition home or self-care (01) ==
PROVIDERS: Family Medicine
DX: K52.9 Noninfective gastroenteritis and colitis, unspecified (principal); K29.70 Gastritis, unspecified, without bleeding; F17.210 Nicotine dependence, cigarettes, uncomplicated
CPT/HCPCS: Q9967

== ENCOUNTER 2019-07-10 16:14 | Emergency (ER) | payer OTHER ==
[~2019-07-10 16:14] MED LIST changes: +OMEPRAZOLE20 M2 PO; +OXYCODO-APAP1 TA2 PO
[2019-07-10 16:46] LABS: HEMATOCRIT 43.7 % (37.0-47.0); HEMOGLOBIN 14.4 g/dl (12.0-16.0); IMMATURE GRANULOCYTES 0.3 % (0.0-5.0); NEUT# 5.42 thou/uL (2.00-7.15); RED BLOOD COUNT 4.8 mill/uL (4.20-5.60); RED CELL DISTRI WIDTH 12.8 % (11.5-15.5)
[2019-07-10 16:49] LABS: GFR > 60 ML/MIN (>=60 (CALC)); GFR FOR AFR.AMER. > 60 ML/MIN (>=60 (CALC))
[2019-07-10 17:03] LABS: INTERNATIONAL NORMALIZED RATIO 0.9 RATIO (0.7-1.3); PROTHROMBIN TIME 9.9 SECONDS (9.0-12.5)
[2019-07-10 17:09] LABS: ALBUMIN 4.1 g/dL (3.2-5.0); ALKALINE PHOSPHATASE 66 u/l (38-126); ANION GAP 9 (6-22 (CALC)); BILIRUBIN, TOTAL 0.3 mg/dL (0.0-1.4); BUN 6 mg/dL (7-17); BUN/CREATININE RATIO 8 (12-20 (CALC)); CARBON DIOXIDE 26 mmol/l (22-30); CHLORIDE 107 mmol/l (95-108); CREATININE 0.7 mg/dL (0.5-1.0); GFR > 60 ML/MIN (>=60 (CALC)); GFR FOR AFR.AMER. > 60 ML/MIN (>=60 (CALC)); LIPASE 24 u/l (23-300); POTASSIUM 4.1 mmol/l (3.5-5.1); SGOT/AST 44 u/l (14-36); SODIUM 139 mmol/l (137-146); TOTAL PROTEIN 7.1 g/dL (6.3-8.2)
[2019-07-10 17:50] VITALS: BP 137/68
[2019-08-05] MEDS ORDERED: KEPPRA250 M1 PO (08:47)
[2019-08-05] MEDS ORDERED: TOPIRAMATE50 MG PO (08:48)
[2019-08-05] MEDS ORDERED: OXYCODO-APAP1 TA2 PO (09:52)
[2019-09-02] MEDS ORDERED: OXYCODO-APAP1 TA2 PO (09:43)
[2019-09-30] MEDS ORDERED: OXYCODO-APAP1 TA2 PO (10:00)
[2019-11-11] MEDS ORDERED: OXYCODO-APAP1 TA2 PO (10:16)
[2019-12-09] MEDS ORDERED: OXYCODO-APAP1 TA2 PO (10:07)
[2020-01-06] MEDS ORDERED: OXYCODO-APAP1 TA2 PO (10:12)
== END 2019-07-10 17:50 | disposition left against medical advice (07) ==
LOC: ED 16:14
PROVIDERS: Family Medicine
DX: I63.9 Cerebral infarction, unspecified (principal); R29.810 Facial weakness; R47.1 Dysarthria and anarthria; R27.0 Ataxia, unspecified; R53.1 Weakness; R20.9 Unspecified disturbances of skin sensation; F17.200 Nicotine dependence, unspecified, uncomplicated; R29.713 NIHSS score 13; Z91.19 Patient's noncompliance with other medical treatment and regimen; Z86.73 Personal history of transient ischemic attack (TIA), and cerebral infarction without residual deficits

== ENCOUNTER 2019-07-22 | Emergency (ER) | payer OTHER ==
[2019-07-22 01:52] LABS: HEMATOCRIT 41.2 % (37.0-47.0); HEMOGLOBIN 13.8 g/dl (12.0-16.0); IMMATURE GRANULOCYTES 0.2 % (0.0-5.0); MEAN CELL VOLUME 91.2 fL CALC (80.0-100.0); MEAN CORPUSCULAR HGB 30.5 pG CALC (26.0-32.0); MEAN CORPUSCULAR HGB CONC 33.5 g/dL CAL (32.0-36.0); NEUT# 4.14 thou/uL (2.00-7.15); RED BLOOD COUNT 4.52 mill/uL (4.20-5.60); RED CELL DISTRI WIDTH 12.9 % (11.5-15.5)
[2019-07-22 01:53] LABS: URINE BILIRUBIN - DIPSTICK NEGATIVE (NEGATIVE); URINE BLOOD DIPSTICK TRACE-INTACT (NEGATIVE); URINE COLOR YELLOW; URINE GLUCOSE - DIPSTICK NEGATIVE (NEGATIVE); URINE KETONE NEGATIVE (NEGATIVE); URINE LEUK ESTERASE NEGATIVE (NEGATIVE); URINE NITRITE - DIPSTICK NEGATIVE (Negative); URINE PROTEIN - DIPSTICK NEGATIVE (NEG-TRACE); URINE UROBILINOGEN - DIPSTICK 0.2 E.U./dL (0.2)
[2019-07-22 01:56] LABS: BARBITURATES NEGATIVE (NEGATIVE); COCAINE NEGATIVE (NEGATIVE); METHADONE NEGATIVE (NEGATIVE); OXCYCODONE POSITIVE (NEGATIVE); TETRAHYDROCANNABIONOL NEGATIVE (NEGATIVE); TRICYLIC ANTIDEPRESSANTS NEGATIVE (NEGATIVE)
[2019-07-22 02:02] LABS: ALBUMIN 4.3 g/dL (3.2-5.0); ALKALINE PHOSPHATASE 67 u/l (38-126); ANION GAP 12 (6-22 (CALC)); BUN 8 mg/dL (7-17); BUN/CREATININE RATIO 12 (12-20 (CALC)); CARBON DIOXIDE 24 mmol/l (22-30); CHLORIDE 107 mmol/l (95-108); CREATININE 0.6 mg/dL (0.5-1.0); GFR > 60 ML/MIN (>=60 (CALC)); GFR FOR AFR.AMER. > 60 ML/MIN (>=60 (CALC)); POTASSIUM 4.3 mmol/l (3.5-5.1); SGOT/AST 48 u/l (14-36); SODIUM 139 mmol/l (137-146); TOTAL PROTEIN 7.7 g/dL (6.3-8.2)
[2019-07-22 02:09] LABS: BILIRUBIN, TOTAL 0.6 mg/dL (0.0-1.4)
[2019-07-22] MEDS ORDERED: FIORICET PO (03:01)
[2019-08-05] MEDS ORDERED: KEPPRA250 M1 PO (08:47)
[2019-08-05] MEDS ORDERED: TOPIRAMATE50 MG PO (08:48)
[2019-08-05] MEDS ORDERED: OXYCODO-APAP1 TA2 PO (09:52)
[2019-09-02] MEDS ORDERED: OXYCODO-APAP1 TA2 PO (09:43)
[2019-09-30] MEDS ORDERED: OXYCODO-APAP1 TA2 PO (10:00)
[2019-11-11] MEDS ORDERED: OXYCODO-APAP1 TA2 PO (10:16)
[2019-12-09] MEDS ORDERED: OXYCODO-APAP1 TA2 PO (10:07)
[2020-01-06] MEDS ORDERED: OXYCODO-APAP1 TA2 PO (10:12)
== END 2019-07-22 03:54 | disposition home or self-care (01) ==
PROVIDERS: Emergency Medicine
DX: R56.9 Unspecified convulsions (principal); G43.909 Migraine, unspecified, not intractable, without status migrainosus; F17.200 Nicotine dependence, unspecified, uncomplicated; Z86.73 Personal history of transient ischemic attack (TIA), and cerebral infarction without residual deficits
CPT/HCPCS: J2060

== ENCOUNTER 2019-07-30 | Emergency (ER) | payer OTHER ==
[2019-07-30] MEDS ORDERED: LEVETIRACETAM500 MG PO (23:50)
[2019-07-30 23:51] LABS: HEMATOCRIT 39.1 % (37.0-47.0); HEMOGLOBIN 13.3 g/dl (12.0-16.0); IMMATURE GRANULOCYTES 0.2 % (0.0-5.0); MEAN CELL VOLUME 89.7 fL CALC (80.0-100.0); MEAN CORPUSCULAR HGB 30.5 pG CALC (26.0-32.0); NEUT# 3.77 thou/uL (2.00-7.15); RED BLOOD COUNT 4.36 mill/uL (4.20-5.60); RED CELL DISTRI WIDTH 12.8 % (11.5-15.5)
[2019-07-30] MEDS ORDERED: TOPIRAMATE50 MG PO (23:51)
[2019-07-31 00:17] LABS: ALBUMIN 3.8 g/dL (3.2-5.0); ALKALINE PHOSPHATASE 56 u/l (38-126); ANION GAP 9 (6-22 (CALC)); BUN 6 mg/dL (7-17); BUN/CREATININE RATIO 8 (12-20 (CALC)); CARBON DIOXIDE 25 mmol/l (22-30); CHLORIDE 108 mmol/l (95-108); CREATININE 0.8 mg/dL (0.5-1.0); GFR > 60 ML/MIN (>=60 (CALC)); GFR FOR AFR.AMER. > 60 ML/MIN (>=60 (CALC)); POTASSIUM 3.7 mmol/l (3.5-5.1); SGOT/AST 29 u/l (14-36); SODIUM 139 mmol/l (137-146); TOTAL PROTEIN 6.5 g/dL (6.3-8.2)
[2019-07-31 00:18] LABS: BILIRUBIN, TOTAL 0.3 mg/dL (0.0-1.4)
[2019-07-31 00:28] LABS: MYOGLOBIN 20 ng/mL (0 - 62)
[2019-07-31] MEDS ORDERED: VISTARIL25 MG PO ×2 (01:32)
[2019-08-05] MEDS ORDERED: KEPPRA250 M1 PO (08:47)
[2019-08-05] MEDS ORDERED: TOPIRAMATE50 MG PO (08:48)
[2019-08-05] MEDS ORDERED: OXYCODO-APAP1 TA2 PO (09:52)
[2019-09-02] MEDS ORDERED: OXYCODO-APAP1 TA2 PO (09:43)
[2019-09-30] MEDS ORDERED: OXYCODO-APAP1 TA2 PO (10:00)
[2019-11-11] MEDS ORDERED: OXYCODO-APAP1 TA2 PO (10:16)
[2019-12-09] MEDS ORDERED: OXYCODO-APAP1 TA2 PO (10:07)
[2020-01-06] MEDS ORDERED: OXYCODO-APAP1 TA2 PO (10:12)
== END 2019-07-31 01:35 | disposition home or self-care (01) ==
PROVIDERS: Family Medicine
DX: G40.909 Epilepsy, unspecified, not intractable, without status epilepticus (principal); F17.200 Nicotine dependence, unspecified, uncomplicated
CPT/HCPCS: J1953; J2060

== ENCOUNTER 2019-09-06 07:35 | Emergency (ER) | payer OTHER ==
[~2019-09-06] VITALS: Ht 162.6 cm; Wt 127.0 kg
[~2019-09-06 07:35] MED LIST changes: +KEPPRA250 M1 PO; +LEVETIRACETAM500 MG PO; +TOPIRAMATE50 MG PO; +VISTARIL25 MG PO
[2019-09-06 10:23] VITALS: BP 124/73
[2019-09-30] MEDS ORDERED: OXYCODO-APAP1 TA2 PO (10:00)
[2019-11-11] MEDS ORDERED: OXYCODO-APAP1 TA2 PO (10:16)
[2019-12-09] MEDS ORDERED: OXYCODO-APAP1 TA2 PO (10:07)
[2020-01-06] MEDS ORDERED: OXYCODO-APAP1 TA2 PO (10:12)
== END 2019-09-06 10:23 | disposition home or self-care (01) ==
LOC: ED 07:35
DX: S20.211A Contusion of right front wall of thorax, initial encounter (principal); M54.9 Dorsalgia, unspecified; G89.29 Other chronic pain; F17.200 Nicotine dependence, unspecified, uncomplicated; W50.0XXA Accidental hit or strike by another person, initial encounter

== ENCOUNTER 2019-11-15 22:03 | Emergency (ER) | payer OTHER ==
[~2019-11-15] VITALS: Ht 162.6 cm; Wt 130.5 kg
[2019-11-15] MEDS ORDERED: DIFLUCAN100 M1 PO ×2 (22:50)
[2019-11-15] MEDS ORDERED: CIPROFLOXACN500 MG PO ×2 (22:50)
[2019-11-15] MEDS ORDERED: AUGMENTIN500TAB PO (22:50)
[2019-11-15 22:59] VITALS: BP 135/81
[2019-12-09] MEDS ORDERED: OXYCODO-APAP1 TA2 PO (10:07)
[2020-01-06] MEDS ORDERED: OXYCODO-APAP1 TA2 PO (10:12)
== END 2019-11-15 23:08 | disposition home or self-care (01) ==
LOC: ED 22:03
DX: K04.7 Periapical abscess without sinus (principal); S30.871A Other superficial bite of abdominal wall, initial encounter; K02.9 Dental caries, unspecified; M84.68XA Pathological fracture in other disease, other site, initial encounter for fracture; K75.81 Nonalcoholic steatohepatitis (NASH); F17.210 Nicotine dependence, cigarettes, uncomplicated; W54.0XXA Bitten by dog, initial encounter; Z22.322 Carrier or suspected carrier of Methicillin resistant Staphylococcus aureus; Z86.73 Personal history of transient ischemic attack (TIA), and cerebral infarction without residual deficits

== ENCOUNTER 2020-01-07 22:04 | Emergency (ER) | payer OTHER ==
[~2020-01-07] VITALS: Ht 162.6 cm; Wt 131.8 kg
[~2020-01-07 22:04] MED LIST changes: +CIPROFLOXACN500 MG PO; +DIFLUCAN100 M1 PO
[2020-01-07] MEDS ORDERED: ELIMITE52 TOP (22:35)
[2020-01-07] MEDS ORDERED: MEDDOSEPAK PO (22:35)
[2020-01-07 23:17] VITALS: BP 158/77
== END 2020-01-07 23:17 | disposition home or self-care (01) ==
LOC: ED 22:04
DX: T78.40XA Allergy, unspecified, initial encounter (principal); K75.81 Nonalcoholic steatohepatitis (NASH); F41.9 Anxiety disorder, unspecified; F17.210 Nicotine dependence, cigarettes, uncomplicated; X58.XXXA Exposure to other specified factors, initial encounter; Z20.7 Contact with and (suspected) exposure to pediculosis, acariasis and other infestations; Z86.73 Personal history of transient ischemic attack (TIA), and cerebral infarction without residual deficits; Z86.14 Personal history of Methicillin resistant Staphylococcus aureus infection

== ENCOUNTER 2020-01-29 18:05 | Emergency (ER) | payer OTHER ==
[~2020-01-29] VITALS: Ht 162.6 cm; Wt 131.8 kg
[~2020-01-29 18:05] MED LIST changes: +ELIMITE52 TOP; +MEDDOSEPAK PO
[2020-01-29 19:10] VITALS: BP 112/53
[2020-01-29 19:45] LABS: URINE BILIRUBIN - DIPSTICK NEGATIVE (NEGATIVE); URINE BLOOD DIPSTICK NEGATIVE (NEGATIVE); URINE COLOR YELLOW; URINE GLUCOSE - DIPSTICK NEGATIVE (NEGATIVE); URINE KETONE NEGATIVE (NEGATIVE); URINE LEUK ESTERASE NEGATIVE (NEGATIVE); URINE NITRITE - DIPSTICK NEGATIVE (Negative); URINE PROTEIN - DIPSTICK NEGATIVE (NEG-TRACE); URINE UROBILINOGEN - DIPSTICK 0.2 E.U./dL (0.2)
[2020-01-29 19:48] LABS: HEMATOCRIT 44.9 % (37.0-47.0); HEMOGLOBIN 14.5 g/dl (12.0-16.0); IMMATURE GRANULOCYTES 0.1 % (0.0-5.0); MEAN CELL VOLUME 94.1 fL CALC (80.0-100.0); MEAN CORPUSCULAR HGB 30.4 pG CALC (26.0-32.0); MEAN CORPUSCULAR HGB CONC 32.3 g/dL CAL (32.0-36.0); NEUT# 4.96 thou/uL (2.00-7.15); RED BLOOD COUNT 4.77 mill/uL (4.20-5.60); RED CELL DISTRI WIDTH 12.5 % (11.5-15.5)
[2020-01-29 20:04] LABS: ALBUMIN 3.9 g/dL (3.2-5.0); ALKALINE PHOSPHATASE 76 u/l (38-126); AMYLASE 58 u/l (30-110); ANION GAP 11 (6-22 (CALC)); BILIRUBIN, TOTAL 0.4 mg/dL (0.0-1.4); BUN 6 mg/dL (7-17); BUN/CREATININE RATIO 9 (12-20 (CALC)); CARBON DIOXIDE 23 mmol/l (22-30); CHLORIDE 110 mmol/l (95-108); CREATININE 0.7 mg/dL (0.5-1.0); GFR > 60 ML/MIN (>=60 (CALC)); GFR FOR AFR.AMER. > 60 ML/MIN (>=60 (CALC)); LIPASE 30 u/l (23-300); POTASSIUM 4.1 mmol/l (3.5-5.1); SGOT/AST 43 u/l (14-36); SODIUM 141 mmol/l (137-146); TOTAL PROTEIN 6.6 g/dL (6.3-8.2)
[2020-01-29] MEDS ORDERED: PROTONIX40 M2 PO (20:44)
== END 2020-01-29 21:41 | disposition home or self-care (01) ==
LOC: ED 18:05
PROVIDERS: Family Medicine
DX: K29.70 Gastritis, unspecified, without bleeding (principal); K75.81 Nonalcoholic steatohepatitis (NASH); F41.9 Anxiety disorder, unspecified; F17.210 Nicotine dependence, cigarettes, uncomplicated; Z86.73 Personal history of transient ischemic attack (TIA), and cerebral infarction without residual deficits
CPT/HCPCS: S0164

== ENCOUNTER 2020-08-07 15:55 | Emergency (ER) | payer MEDICARE, OTHER ==
[~2020-08-07] VITALS: Ht 162.6 cm; Wt 135.0 kg
[~2020-08-07 15:55] MED LIST changes: +PROTONIX40 M2 PO
[2020-08-07 16:37] LABS: HEMATOCRIT 42.8 % (37.0-47.0); HEMOGLOBIN 14.3 g/dl (12.0-16.0); IMMATURE GRANULOCYTES 0.3 % (0.0-5.0); MEAN CELL VOLUME 92.2 fL CALC (80.0-100.0); MEAN CORPUSCULAR HGB 30.8 pG CALC (26.0-32.0); MEAN CORPUSCULAR HGB CONC 33.4 g/dL CAL (32.0-36.0); NEUT# 6.03 thou/uL (2.00-7.15); RED BLOOD COUNT 4.64 mill/uL (4.20-5.60); RED CELL DISTRI WIDTH 13.1 % (11.5-15.5)
[2020-08-07 16:38] LABS: URINE BILIRUBIN - DIPSTICK NEGATIVE (NEGATIVE); URINE BLOOD DIPSTICK NEGATIVE (NEGATIVE); URINE COLOR YELLOW; URINE GLUCOSE - DIPSTICK NEGATIVE (NEGATIVE); URINE KETONE NEGATIVE (NEGATIVE); URINE LEUK ESTERASE NEGATIVE (NEGATIVE); URINE PH 6.5 (4.5-8.0); URINE PROTEIN - DIPSTICK NEGATIVE (NEG-TRACE); URINE SPECIFIC GRAVITY <=1.005; URINE UROBILINOGEN - DIPSTICK 0.2 E.U./dL (0.2)
[2020-08-07 16:39] LABS: URINE NITRITE - DIPSTICK NEGATIVE (Negative)
[2020-08-07 16:50] LABS: ALBUMIN 3.9 g/dL (3.2-5.0); ALKALINE PHOSPHATASE 66 u/l (38-126); ANION GAP 12 (6-22 (CALC)); BILIRUBIN, TOTAL 0.6 mg/dL (0.0-1.4); BUN 8 mg/dL (7-17); BUN/CREATININE RATIO 13 (12-20 (CALC)); CARBON DIOXIDE 22 mmol/l (22-30); CHLORIDE 109 mmol/l (95-108); CREATININE 0.6 mg/dL (0.5-1.0); GFR > 60 ML/MIN (>=60 (CALC)); GFR FOR AFR.AMER. > 60 ML/MIN (>=60 (CALC)); POTASSIUM 3.9 mmol/l (3.5-5.1); SGOT/AST 58 u/l (14-36); SODIUM 139 mmol/l (137-146); TOTAL PROTEIN 6.9 g/dL (6.3-8.2)
[2020-08-07 17:30] VITALS: BP 124/56
[2020-08-07] MEDS ORDERED: ATIVAN1 MG PO (17:53)
[2020-08-07] MEDS ORDERED: ARICEPT10 MG PO (17:55)
[2020-08-07] MEDS ORDERED: VISTARIL25 MG PO (17:55)
[2020-08-10] MEDS ORDERED: OXYCODO-APAP1 TA2 PO (11:11)
[2020-09-14] MEDS ORDERED: OXYCODO-APAP1 TA2 PO (11:27)
[2020-10-12] MEDS ORDERED: OXYCODO-APAP1 TA2 PO (12:32)
[2020-11-16] MEDS ORDERED: OXYCODO-APAP1 TA2 PO (09:33)
== END 2020-08-07 19:07 | disposition home or self-care (01) ==
LOC: ED 15:55
DX: G43.909 Migraine, unspecified, not intractable, without status migrainosus (principal); K75.81 Nonalcoholic steatohepatitis (NASH); F41.9 Anxiety disorder, unspecified; F17.210 Nicotine dependence, cigarettes, uncomplicated; Z86.73 Personal history of transient ischemic attack (TIA), and cerebral infarction without residual deficits; Z20.822 Contact with and (suspected) exposure to COVID-19

== ENCOUNTER 2021-02-19 16:32 | Emergency (ER) | payer MEDICARE, OTHER ==
[~2021-02-19 16:32] MED LIST changes: +ARICEPT10 MG PO
[2021-02-19] MEDS ORDERED: ONDANSETRON4 MG PO (23:31)
[2021-02-19] MEDS ORDERED: CARAFATE PO (23:32)
== END 2021-02-19 17:15 | disposition left against medical advice (07) ==
LOC: ED 16:32 → LWOBS 17:15
DX: Z53.21 Procedure and treatment not carried out due to patient leaving prior to being seen by health care provider (principal)

== ENCOUNTER 2021-02-19 21:07 | Emergency (ER) | payer MEDICARE, OTHER ==
[~2021-02-19] VITALS: Ht 162.6 cm; Wt 135.0 kg
[2021-02-19 22:20] LABS: HEMOGLOBIN 14.5 g/dl (12.0-16.0); IMMATURE GRANULOCYTES 0.2 % (0.0-5.0); MEAN CELL VOLUME 95.4 fL CALC (80.0-100.0); MEAN CORPUSCULAR HGB 31.5 pG CALC (26.0-32.0); NEUT# 5.78 thou/uL (2.00-7.15); RED BLOOD COUNT 4.61 mill/uL (4.20-5.60); RED CELL DISTRI WIDTH 12.4 % (11.5-15.5)
[2021-02-19 22:35] LABS: ALBUMIN 3.6 g/dL (3.2-5.0); ALKALINE PHOSPHATASE 69 u/l (38-126); AMYLASE 59 u/l (30-110); ANION GAP 10 (6-22 (CALC)); BILIRUBIN, TOTAL 0.5 mg/dL (0.0-1.4); BUN 13 mg/dL (7-17); BUN/CREATININE RATIO 18 (12-20 (CALC)); CARBON DIOXIDE 28 mmol/l (22-30); CHLORIDE 105 mmol/l (95-108); CREATININE 0.7 mg/dL (0.5-1.0); GFR > 60 ML/MIN (>=60 (CALC)); GFR FOR AFR.AMER. > 60 ML/MIN (>=60 (CALC)); LIPASE 28 u/l (23-300); POTASSIUM 3.8 mmol/l (3.5-5.1); SGOT/AST 48 u/l (14-36); SODIUM 139 mmol/l (137-146); TOTAL PROTEIN 6.8 g/dL (6.3-8.2)
[2021-02-19 23:14] LABS: URINE BILIRUBIN - DIPSTICK NEGATIVE (NEGATIVE); URINE BLOOD DIPSTICK NEGATIVE (NEGATIVE); URINE COLOR YELLOW; URINE GLUCOSE - DIPSTICK NEGATIVE (NEGATIVE); URINE KETONE NEGATIVE (NEGATIVE); URINE LEUK ESTERASE NEGATIVE (NEGATIVE); URINE NITRITE - DIPSTICK NEGATIVE (Negative); URINE PROTEIN - DIPSTICK NEGATIVE (NEG-TRACE); URINE UROBILINOGEN - DIPSTICK 0.2 E.U./dL (0.2)
[2021-02-19] MEDS ORDERED: ONDANSETRON4 MG PO (23:31)
[2021-02-19] MEDS ORDERED: CARAFATE PO (23:32)
[2021-02-19 23:38] VITALS: BP 137/79
== END 2021-02-19 23:47 | disposition home or self-care (01) ==
LOC: ED 21:07
PROVIDERS: Emergency Medicine
DX: K29.70 Gastritis, unspecified, without bleeding (principal); K75.81 Nonalcoholic steatohepatitis (NASH); F41.9 Anxiety disorder, unspecified; K58.9 Irritable bowel syndrome, unspecified; F17.200 Nicotine dependence, unspecified, uncomplicated; Z86.73 Personal history of transient ischemic attack (TIA), and cerebral infarction without residual deficits
CPT/HCPCS: Q9967; S0164

== ENCOUNTER 2021-05-18 17:56 | Emergency (ER) | payer MEDICARE, OTHER ==
[~2021-05-18 17:56] MED LIST changes: +CARAFATE PO
== END 2021-05-18 18:32 | disposition left against medical advice (07) ==
LOC: ED 17:56 → LWOBS 18:31
DX: Z53.21 Procedure and treatment not carried out due to patient leaving prior to being seen by health care provider (principal)

== ENCOUNTER 2021-06-12 03:17 | Emergency (ER) | payer MEDICARE, OTHER ==
[2021-06-12] VITALS (7 sets, daily range): BP systolic 117–138; BP diastolic 63–92
[~2021-06-12] VITALS: Ht 162.6 cm; Wt 136.0 kg
[2021-06-12 03:58] LABS: URINE BILIRUBIN - DIPSTICK NEGATIVE (NEGATIVE); URINE BLOOD DIPSTICK NEGATIVE (NEGATIVE); URINE COLOR YELLOW; URINE GLUCOSE - DIPSTICK NEGATIVE (NEGATIVE); URINE KETONE NEGATIVE (NEGATIVE); URINE LEUK ESTERASE NEGATIVE (NEGATIVE); URINE PH 7.5 (4.5-8.0); URINE PROTEIN - DIPSTICK NEGATIVE (NEG-TRACE); URINE SPECIFIC GRAVITY 1.015; URINE UROBILINOGEN - DIPSTICK 0.2 E.U./dL (0.2)
[2021-06-12 04:00] LABS: HEMATOCRIT 49.5 % (37.0-47.0); HEMOGLOBIN 16.4 g/dl (12.0-16.0); IMMATURE GRANULOCYTES 0.3 % (0.0-5.0); MEAN CELL VOLUME 95.7 fL CALC (80.0-100.0); MEAN CORPUSCULAR HGB 31.7 pG CALC (26.0-32.0); MEAN CORPUSCULAR HGB CONC 33.1 g/dL CAL (32.0-36.0); NEUT# 5.59 thou/uL (2.00-7.15); RED BLOOD COUNT 5.17 mill/uL (4.20-5.60); RED CELL DISTRI WIDTH 12.9 % (11.5-15.5)
[2021-06-12 04:01] LABS: URINE NITRITE - DIPSTICK NEGATIVE (Negative)
[2021-06-12 04:12] LABS: ALKALINE PHOSPHATASE 94 u/l (38-126); AMYLASE 88 u/l (30-110); BUN 10 mg/dL (7-17); BUN/CREATININE RATIO 14 (12-20 (CALC)); CARBON DIOXIDE 28 mmol/l (22-30); CHLORIDE 105 mmol/l (95-108); CREATININE 0.7 mg/dL (0.5-1.0); GFR > 60 ML/MIN (>=60 (CALC)); GFR FOR AFR.AMER. > 60 ML/MIN (>=60 (CALC)); LIPASE 33 u/l (23-300); SODIUM 139 mmol/l (137-146)
[2021-06-12 04:15] LABS: ALBUMIN 4.9 g/dL (3.2-5.0); ANION GAP 12 (6-22 (CALC)); POTASSIUM 5.5 mmol/l (3.5-5.1); SGOT/AST 99 u/l (14-36)
[2021-06-12] MEDS ORDERED: PREVACID30 M3 PO (05:24)
[2021-06-12] MEDS ORDERED: ONDANSETRON4 MG PO (05:24)
[2021-06-12] MEDS ORDERED: CARAFATE PO (05:24)
== END 2021-06-12 05:40 | disposition home or self-care (01) ==
LOC: ED 03:17
PROVIDERS: Emergency Medicine
DX: K29.70 Gastritis, unspecified, without bleeding (principal); N83.201 Unspecified ovarian cyst, right side; K75.81 Nonalcoholic steatohepatitis (NASH); F41.9 Anxiety disorder, unspecified; F17.200 Nicotine dependence, unspecified, uncomplicated; Z86.73 Personal history of transient ischemic attack (TIA), and cerebral infarction without residual deficits
CPT/HCPCS: Q9967; S0164

== ENCOUNTER 2021-08-01 21:13 | Emergency (ER) | payer MEDICARE, OTHER ==
[~2021-08-01] VITALS: Ht 162.6 cm; Wt 127.0 kg
[~2021-08-01 21:13] MED LIST changes: +PREVACID30 M3 PO
[2021-08-01 21:22] VITALS: BP 131/64
[2021-08-01 21:31] VITALS: BP 122/70
[2021-08-01 21:46] VITALS: BP 118/62
[2021-08-01 21:59] LABS: IMMATURE GRANULOCYTES 0.1 % (0.0-5.0); MEAN CELL VOLUME 96.9 fL CALC (80.0-100.0); MEAN CORPUSCULAR HGB 31.6 pG CALC (26.0-32.0); MEAN CORPUSCULAR HGB CONC 32.6 g/dL CAL (32.0-36.0); NEUT# 4.09 thou/uL (2.00-7.15); RED BLOOD COUNT 4.46 mill/uL (4.20-5.60); RED CELL DISTRI WIDTH 12.8 % (11.5-15.5)
[2021-08-01 22:01] VITALS: BP 111/66
[2021-08-01 22:02] LABS: HEMATOCRIT 43.2 % (37.0-47.0); HEMOGLOBIN 14.1 g/dl (12.0-16.0)
[2021-08-01 22:11] LABS: ALBUMIN 3.8 g/dL (3.2-5.0); ALKALINE PHOSPHATASE 76 u/l (38-126); ANION GAP 12 (6-22 (CALC)); BILIRUBIN, TOTAL 0.5 mg/dL (0.0-1.4); BUN 5 mg/dL (7-17); BUN/CREATININE RATIO 7 (12-20 (CALC)); CARBON DIOXIDE 21 mmol/l (22-30); CHLORIDE 110 mmol/l (95-108); CREATININE 0.6 mg/dL (0.5-1.0); GFR > 60 ML/MIN (>=60 (CALC)); GFR FOR AFR.AMER. > 60 ML/MIN (>=60 (CALC)); POTASSIUM 3.6 mmol/l (3.5-5.1); SGOT/AST 52 u/l (14-36); SODIUM 139 mmol/l (137-146); TOTAL PROTEIN 6.8 g/dL (6.3-8.2)
[2021-08-01 22:15] LABS: D-DIMER 0.32 mg/L (0.19-0.60)
[2021-08-01 22:22] LABS: MYOGLOBIN 73 ng/mL (0 - 62)
[2021-08-01 22:31] VITALS: BP 124/80
[2021-08-01 22:31] LABS: ACT PARTIAL THROMBO TIME 25.6 SECONDS (20.0-32.5); PROTHROMBIN TIME 10.2 SECONDS (9.0-12.5)
[2021-08-01] MEDS ORDERED: MAXZIDE-25MG1 COMBO PO (23:03)
[2021-08-01 23:05] VITALS: BP 124/80
== END 2021-08-01 23:09 | disposition home or self-care (01) ==
LOC: ED 21:13
PROVIDERS: Family Medicine
DX: R06.02 Shortness of breath (principal); R60.0 Localized edema; F41.9 Anxiety disorder, unspecified; F17.210 Nicotine dependence, cigarettes, uncomplicated; Z86.711 Personal history of pulmonary embolism; Z86.73 Personal history of transient ischemic attack (TIA), and cerebral infarction without residual deficits; K75.81 Nonalcoholic steatohepatitis (NASH)

== ENCOUNTER 2021-08-13 17:19 | Emergency (ER) | payer MEDICARE, OTHER ==
[~2021-08-13] VITALS: Ht 162.6 cm; Wt 130.0 kg
[2021-08-13] VITALS (7 sets, daily range): BP systolic 104–133; BP diastolic 58–83
[~2021-08-13 17:19] MED LIST changes: +MAXZIDE-25MG1 COMBO PO
[2021-08-13 18:11] LABS: HEMATOCRIT 45.1 % (37.0-47.0); HEMOGLOBIN 14.8 g/dl (12.0-16.0); IMMATURE GRANULOCYTES 0.1 % (0.0-5.0); MEAN CELL VOLUME 96.8 fL CALC (80.0-100.0); MEAN CORPUSCULAR HGB 31.8 pG CALC (26.0-32.0); MEAN CORPUSCULAR HGB CONC 32.8 g/dL CAL (32.0-36.0); NEUT# 5.48 thou/uL (2.00-7.15); RED BLOOD COUNT 4.66 mill/uL (4.20-5.60); RED CELL DISTRI WIDTH 12.7 % (11.5-15.5)
[2021-08-13 18:27] LABS: URINE BILIRUBIN - DIPSTICK NEGATIVE (NEGATIVE); URINE BLOOD DIPSTICK NEGATIVE (NEGATIVE); URINE COLOR YELLOW; URINE GLUCOSE - DIPSTICK NEGATIVE (NEGATIVE); URINE KETONE NEGATIVE (NEGATIVE); URINE LEUK ESTERASE NEGATIVE (NEGATIVE); URINE PH 6.5 (4.5-8.0); URINE PROTEIN - DIPSTICK NEGATIVE (NEG-TRACE); URINE SPECIFIC GRAVITY <=1.005; URINE UROBILINOGEN - DIPSTICK 0.2 E.U./dL (0.2)
[2021-08-13 18:28] LABS: URINE NITRITE - DIPSTICK NEGATIVE (Negative)
[2021-08-13 18:30] LABS: ALBUMIN 3.7 g/dL (3.2-5.0); ALKALINE PHOSPHATASE 70 u/l (38-126); ANION GAP 11 (6-22 (CALC)); BILIRUBIN, TOTAL 0.4 mg/dL (0.0-1.4); BUN 6 mg/dL (7-17); BUN/CREATININE RATIO 10 (12-20 (CALC)); CARBON DIOXIDE 22 mmol/l (22-30); CHLORIDE 111 mmol/l (95-108); CREATININE 0.6 mg/dL (0.5-1.0); ETHYL ALCOHOL 0 mg/dl (0-30); GFR > 60 ML/MIN (>=60 (CALC)); GFR FOR AFR.AMER. > 60 ML/MIN (>=60 (CALC)); LIPASE 22 u/l (23-300); POTASSIUM 3.7 mmol/l (3.5-5.1); SGOT/AST 48 u/l (14-36); SODIUM 140 mmol/l (137-146); TOTAL PROTEIN 6.6 g/dL (6.3-8.2)
[2021-08-13 18:32] LABS: ACT PARTIAL THROMBO TIME 25.3 SECONDS (20.0-32.5); PROTHROMBIN TIME 10.4 SECONDS (9.0-12.5)
== END 2021-08-13 18:58 | disposition home or self-care (01) ==
LOC: ED 17:19
DX: R56.9 Unspecified convulsions (principal); K75.81 Nonalcoholic steatohepatitis (NASH); F41.9 Anxiety disorder, unspecified; F17.200 Nicotine dependence, unspecified, uncomplicated; Z86.14 Personal history of Methicillin resistant Staphylococcus aureus infection; Z86.73 Personal history of transient ischemic attack (TIA), and cerebral infarction without residual deficits; Z20.822 Contact with and (suspected) exposure to COVID-19
CPT/HCPCS: J1953

== ENCOUNTER 2021-09-15 02:14 | Emergency (ER) | payer MEDICARE, OTHER ==
[~2021-09-15] VITALS: Ht 165.1 cm; Wt 128.0 kg
[2021-09-15 02:21] VITALS: BP 155/107
[2021-09-15 02:23] VITALS: BP 148/95
[2021-09-15 02:31] VITALS: BP 136/80
[2021-09-15] MEDS ORDERED: CLEOCIN300 MG PO (02:33)
[2021-09-15 02:36] VITALS: BP 136/80
== END 2021-09-15 02:45 | disposition home or self-care (01) ==
LOC: ED 02:14
DX: T81.49XA Infection following a procedure, other surgical site, initial encounter (principal); F41.9 Anxiety disorder, unspecified; K75.81 Nonalcoholic steatohepatitis (NASH); F17.200 Nicotine dependence, unspecified, uncomplicated; Y83.9 Surgical procedure, unspecified as the cause of abnormal reaction of the patient, or of later complication, without mention of misadventure at the time of the procedure; Z86.14 Personal history of Methicillin resistant Staphylococcus aureus infection; Z86.73 Personal history of transient ischemic attack (TIA), and cerebral infarction without residual deficits

== ENCOUNTER 2021-11-30 07:58 | Day surgery (SDC) | payer MEDICARE, OTHER ==
[~2021-11-30] VITALS: Ht 165.1 cm; Wt 131.5 kg
[~2021-11-30 07:58] MED LIST changes: +CLEOCIN300 MG PO
[2021-11-30 13:43] VITALS: BP 123/81
== END 2021-11-30 11:51 | disposition home or self-care (01) ==
LOC: ORM 07:58
PROVIDERS: ATTEND Physical Medicine & Rehabilitation
DX: M62.838 Other muscle spasm (principal); Z20.822 Contact with and (suspected) exposure to COVID-19; Z01.818 Encounter for other preprocedural examination; Z11.59 Encounter for screening for other viral diseases

== ENCOUNTER 2022-01-26 11:57 | Emergency (ER) | payer MEDICARE, OTHER ==
[2022-01-26] VITALS (7 sets, daily range): BP systolic 114–132; BP diastolic 70–82
[~2022-01-26] VITALS: Ht 165.1 cm; Wt 128.6 kg
[2022-01-26 12:41] LABS: HEMATOCRIT 43.2 % (37.0-47.0); HEMOGLOBIN 14.5 g/dl (12.0-16.0); IMMATURE GRANULOCYTES 0.2 % (0.0-5.0); MEAN CELL VOLUME 94.1 fL CALC (80.0-100.0); MEAN CORPUSCULAR HGB 31.6 pG CALC (26.0-32.0); MEAN CORPUSCULAR HGB CONC 33.6 g/dL CAL (32.0-36.0); NEUT# 6.03 thou/uL (2.00-7.15); RED BLOOD COUNT 4.59 mill/uL (4.20-5.60); RED CELL DISTRI WIDTH 12.3 % (11.5-15.5)
[2022-01-26 12:54] LABS: ALBUMIN 4.1 g/dL (3.2-5.0); ALKALINE PHOSPHATASE 91 u/l (38-126); ANION GAP 11 (6-22 (CALC)); BILIRUBIN, TOTAL 0.3 mg/dL (0.0-1.4); BUN 8 mg/dL (7-17); BUN/CREATININE RATIO 11 (12-20 (CALC)); CARBON DIOXIDE 22 mmol/l (22-30); CHLORIDE 109 mmol/l (95-108); CREATININE 0.7 mg/dL (0.5-1.0); GFR FOR AFR.AMER. > 60 ML/MIN (>=60 (CALC)); GFR OTHER RACES > 60 ML/MIN (>=60 (CALC)); POTASSIUM 3.9 mmol/l (3.5-5.1); SGOT/AST 50 u/l (14-36); SODIUM 138 mmol/l (137-146)
[2022-01-26 13:00] LABS: URINE BILIRUBIN - DIPSTICK NEGATIVE (NEGATIVE); URINE BLOOD DIPSTICK NEGATIVE (NEGATIVE); URINE COLOR YELLOW; URINE GLUCOSE - DIPSTICK NEGATIVE (NEGATIVE); URINE KETONE TRACE mg/dL (NEGATIVE); URINE LEUK ESTERASE NEGATIVE (NEGATIVE); URINE PROTEIN - DIPSTICK TRACE mg/dL (NEG-TRACE); URINE SPECIFIC GRAVITY >=1.030; URINE UROBILINOGEN - DIPSTICK 0.2 E.U./dL (0.2)
[2022-01-26 13:25] LABS: URINE NITRITE - DIPSTICK NEGATIVE (Negative)
== END 2022-01-26 14:10 | disposition left against medical advice (07) ==
LOC: ED 11:57
PROVIDERS: Nurse Practitioner
DX: R56.9 Unspecified convulsions (principal); F41.9 Anxiety disorder, unspecified; K75.81 Nonalcoholic steatohepatitis (NASH); F17.210 Nicotine dependence, cigarettes, uncomplicated; Z86.73 Personal history of transient ischemic attack (TIA), and cerebral infarction without residual deficits; Z86.16 Personal history of COVID-19; Z53.29 Procedure and treatment not carried out because of patient's decision for other reasons

== ENCOUNTER 2022-03-14 16:29 | Emergency (ER) | payer MEDICARE, OTHER ==
[~2022-03-14] VITALS: Ht 165.1 cm; Wt 116.0 kg
[2022-03-14] MEDS ORDERED: BACLOFEN10 MG PO (17:18)
[2022-03-14] MEDS ORDERED: BENZONATATE200 MG PO (19:55)
[2022-03-14] MEDS ORDERED: VIBRAMYCIN100 M2 PO (19:55)
[2022-03-14] MEDS ORDERED: DIFLUCAN150 MG PO (20:00)
[2022-03-14 20:20] VITALS: BP 140/99
== END 2022-03-14 20:30 | disposition home or self-care (01) ==
LOC: ED 16:29
DX: J32.9 Chronic sinusitis, unspecified (principal); F17.210 Nicotine dependence, cigarettes, uncomplicated; K75.81 Nonalcoholic steatohepatitis (NASH); Z86.73 Personal history of transient ischemic attack (TIA), and cerebral infarction without residual deficits; Z86.16 Personal history of COVID-19; Z20.822 Contact with and (suspected) exposure to COVID-19

== ENCOUNTER 2022-03-29 07:16 | Day surgery (SDC) | payer MEDICARE, OTHER ==
[~2022-03-29] VITALS: Ht 165.1 cm; Wt 129.3 kg
[~2022-03-29 07:16] MED LIST changes: +BACLOFEN10 MG PO; +BENZONATATE200 MG PO; +LIPITOR20 M1 PO; +VIBRAMYCIN100 M2 PO
[2022-03-29 10:12] VITALS: BP 109/71
== END 2022-03-29 10:25 | disposition home or self-care (01) ==
LOC: ORM 07:16
PROVIDERS: ATTEND Physical Medicine & Rehabilitation
DX: M62.838 Other muscle spasm (principal)

== ENCOUNTER 2022-08-30 06:55 | Day surgery (SDC) | payer MEDICARE, OTHER ==
[~2022-08-30 06:55] MED LIST changes: +KEPPRA500 M2 PO
[2022-08-30 07:22] LABS: HCG SERUM/URINE (NEG/POS) NEGATIVE (NEGATIVE)
[2022-08-30 12:14] VITALS: BP 162/97
== END 2022-08-30 09:20 | disposition home or self-care (01) ==
LOC: ORM 06:55
PROVIDERS: ATTEND Physical Medicine & Rehabilitation
DX: G89.4 Chronic pain syndrome (principal); M06.9 Rheumatoid arthritis, unspecified; M54.16 Radiculopathy, lumbar region; M47.816 Spondylosis without myelopathy or radiculopathy, lumbar region; M62.838 Other muscle spasm; M54.12 Radiculopathy, cervical region
CPT/HCPCS: J1100; Q9967

== ENCOUNTER 2023-01-30 17:17 | Emergency (ER) | payer MEDICARE, OTHER ==
[~2023-01-30] VITALS: Ht 165.1 cm; Wt 120.0 kg
[2023-01-30] MEDS ORDERED: ZOFRAN4 MG/TAB PO (19:53)
[2023-01-30] MEDS ORDERED: PREDNISONE20 MG PO (19:53)
[2023-01-30] MEDS ORDERED: ZPAK PO (19:53)
[2023-01-30 20:15] VITALS: BP 147/90
[2023-01-30] MEDS ORDERED: NEBULIZER KIT/TUBING IN (20:16)
[2023-01-30] MEDS ORDERED: ALBUTEROL SUL1.25 MG IN (20:16)
== END 2023-01-30 20:27 | disposition home or self-care (01) ==
LOC: ED 17:17
DX: J06.9 Acute upper respiratory infection, unspecified (principal); K75.81 Nonalcoholic steatohepatitis (NASH); F41.9 Anxiety disorder, unspecified; F17.210 Nicotine dependence, cigarettes, uncomplicated; Z86.73 Personal history of transient ischemic attack (TIA), and cerebral infarction without residual deficits; Z86.16 Personal history of COVID-19; Z20.822 Contact with and (suspected) exposure to COVID-19

== ENCOUNTER 2023-11-11 03:40 | Emergency (ER) | payer MEDICARE ==
[~2023-11-11] VITALS: Ht 165.1 cm; Wt 100.0 kg
[~2023-11-11 03:40] MED LIST changes: +ALBUTEROL SUL1.25 MG IN; +METHOCARBAMOL500 MG PO; +NEBULIZER KIT/TUBING IN; +PREDNISONE20 MG PO; +ZOFRAN4 MG/TAB PO; +ZPAK PO
[2023-11-11 04:30] VITALS: BP 128/79
== END 2023-11-11 04:30 | disposition home or self-care (01) ==
LOC: ED 03:40
DX: S90.32XA Contusion of left foot, initial encounter (principal); F17.200 Nicotine dependence, unspecified, uncomplicated; W20.8XXA Other cause of strike by thrown, projected or falling object, initial encounter; Z86.73 Personal history of transient ischemic attack (TIA), and cerebral infarction without residual deficits

== ENCOUNTER 2024-02-12 08:19 | Emergency (ER) | payer MEDICARE, MEDICAID ==
[~2024-02-12] VITALS: Ht 162.6 cm; Wt 104.2 kg
[2024-02-12] MEDS ORDERED: SODIUM CHLORIDE 0.9% 1,000 ML IV ONE (08:30)
[2024-02-12 08:52] LABS: BASO% 0.2 % (0-3); EOS% 1.6 % (0-8); HEMATOCRIT 40.8 % (37.0-47.0); HEMOGLOBIN 13.1 g/dl (12.0-16.0); MEAN CELL VOLUME 100.2 fL CALC (80.0-100.0); MEAN CORPUSCULAR HGB 32.2 pG CALC (26.0-32.0); MEAN CORPUSCULAR HGB CONC 32.1 g/dL CAL (32.0-36.0); MONO% 9.2 % (2-13); NEUT# 4.52 thou/uL (2.00-7.15); RED BLOOD COUNT 4.07 mill/uL (4.20-5.60); RED CELL DISTRI WIDTH 13.9 % (11.5-15.5)
[2024-02-12 09:06] LABS: ALBUMIN 3.6 g/dL (3.2-5.0); ALKALINE PHOSPHATASE 50 u/l (38-126); ANION GAP 11 (6-22 (CALC)); BILIRUBIN, TOTAL 0.3 mg/dL (0.02-1.3); BUN 13 mg/dL (7-17); BUN/CREATININE RATIO 18 (12-20 (CALC)); CARBON DIOXIDE 21 mmol/l (22-30); CHLORIDE 112 mmol/l (95-108); CPK 45 u/l (30-135); CREATININE 0.7 mg/dL (0.5-1.0); ESTIMATED GFR 111 ML/MIN (>=90 (CALC)); MAGNESIUM 2.1 mg/dL (1.6-2.3); POTASSIUM 3.6 mmol/l (3.5-5.1); SGOT/AST 23 u/l (14-36); SODIUM 140 mmol/l (137-146); TOTAL PROTEIN 6.1 g/dL (6.3-8.2)
[2024-02-12 09:30] VITALS: BP 98/62
[2024-02-12] MEDS ORDERED: SODIUM CHLORIDE 0.9% IV SCH (09:30)
[2024-02-12] MEDS ORDERED: LEVETIRACETAM IV SCH (09:30)
[2024-02-12 10:00] VITALS: BP 98/60
[2024-02-12 10:30] VITALS: BP 109/66
[2024-02-12 11:00] VITALS: BP 107/67
[2024-02-12 11:30] VITALS: BP 119/77
[2024-02-12 13:14] VITALS: BP 119/77
== END 2024-02-12 13:27 | disposition home or self-care (01) ==
LOC: ED 08:19
PROVIDERS: Emergency Medicine
DX: G40.909 Epilepsy, unspecified, not intractable, without status epilepticus (principal); F17.200 Nicotine dependence, unspecified, uncomplicated; Z86.73 Personal history of transient ischemic attack (TIA), and cerebral infarction without residual deficits
CPT/HCPCS: J1953

== ENCOUNTER 2024-02-18 11:45 | Emergency (ER) | payer MEDICARE ==
[2024-02-18] VITALS (8 sets, daily range): BP systolic 86–129; BP diastolic 57–79
[~2024-02-18] VITALS: Ht 162.6 cm; Wt 99.7 kg
[2024-02-18] MEDS ORDERED: Barium Sulfate (Readi-Cat 2 Berry) 450 ML/BTL PO ONE (12:35)
[2024-02-18] MEDS ORDERED: ISOVUE-300 (Iopamidol) 100 ML SDV IV ONE (12:40)
[2024-02-18] MEDS ORDERED: KETOROLAC TROMETHAMINE 30 MG/ML SDV IV ONE (12:40)
[2024-02-18] MEDS ORDERED: LOPERAMIDE HCL 2 MG CAP PO ONE (12:45)
[2024-02-18 12:50] LABS: CREATININE 0.7 mg/dL (0.5-1.0); POTASSIUM 3.8 mmol/l (3.5-5.1); TOTAL PROTEIN 7.2 g/dL (6.3-8.2)
[2024-02-18 12:57] LABS: ETHYL ALCOHOL 0 mg/dl (0-30); LIPASE 20 u/l (23-300)
[2024-02-18 13:00] LABS: ALBUMIN 4.4 g/dL (3.2-5.0); BILIRUBIN, TOTAL 1.1 mg/dL (0.02-1.3)
[2024-02-18 13:11] LABS: BASO% 0.3 % (0-3); EOS% 0.6 % (0-8); HEMATOCRIT 43.6 % (37.0-47.0); HEMOGLOBIN 14.3 g/dl (12.0-16.0); IMMATURE GRANULOCYTES 0.1 % (0.0-5.0); LYMPH% 24.7 % (15-41); MEAN CELL VOLUME 97.3 fL CALC (80.0-100.0); MEAN CORPUSCULAR HGB 31.9 pG CALC (26.0-32.0); MEAN CORPUSCULAR HGB CONC 32.8 g/dL CAL (32.0-36.0); MONO% 8.3 % (2-13); NEUT# 7.58 thou/uL (2.00-7.15); RED BLOOD COUNT 4.48 mill/uL (4.20-5.60); RED CELL DISTRI WIDTH 13.1 % (11.5-15.5)
[2024-02-18 13:12] LABS: URINE BILIRUBIN - DIPSTICK Negative (NEGATIVE); URINE BLOOD DIPSTICK Trace-intact (NEGATIVE); URINE GLUCOSE - DIPSTICK Negative (NEGATIVE); URINE KETONE Negative (NEGATIVE); URINE LEUK ESTERASE Negative (NEGATIVE); URINE NITRITE - DIPSTICK Negative (Negative); URINE PROTEIN - DIPSTICK Negative (NEG-TRACE); URINE SPECIFIC GRAVITY <=1.005; URINE UROBILINOGEN - DIPSTICK 0.2 E.U./dL (0.2)
[2024-02-18 13:24] LABS: URINE COLOR Yellow
[2024-02-18] MEDS ORDERED: SODIUM CHLORIDE 0.9% 1,000 ML IV ONE (13:40)
[2024-02-18] MEDS ORDERED: METRONIDAZOLE500 MG PO (14:25)
[2024-02-18] MEDS ORDERED: IMODIUM A-D2 M3 PO (14:25)
[2024-02-18] MEDS ORDERED: CEPHALEXIN500 MG PO (14:25)
[2024-02-18] MEDS ORDERED: CIPROFLOXACN500 MG PO (14:25)
[2024-02-18] MEDS ORDERED: metroNIDAZOLE 500 MG/TAB PO ONE (14:35)
[2024-02-18] MEDS ORDERED: CIPROFLOXACIN HCL 500 MG/TAB PO ONE (14:35)
[2024-02-18] MEDS ORDERED: CEPHALEXIN MONOHYDRATE 500 MG/CAP PO ONE (14:35)
[2024-02-18] MEDS ORDERED: DIFLUCAN150 MG PO (14:43)
== END 2024-02-18 14:44 | disposition home or self-care (01) ==
LOC: ED 11:45
PROVIDERS: Family Medicine
DX: K52.9 Noninfective gastroenteritis and colitis, unspecified (principal); L03.221 Cellulitis of neck; E86.0 Dehydration; R40.0 Somnolence; Z86.73 Personal history of transient ischemic attack (TIA), and cerebral infarction without residual deficits; F32.A Depression, unspecified; F41.9 Anxiety disorder, unspecified; K75.81 Nonalcoholic steatohepatitis (NASH); K58.9 Irritable bowel syndrome, unspecified; M54.9 Dorsalgia, unspecified; M54.2 Cervicalgia; G89.29 Other chronic pain; Z79.891 Long term (current) use of opiate analgesic; M06.9 Rheumatoid arthritis, unspecified
CPT/HCPCS: Q9967

== ENCOUNTER 2024-02-25 14:35 | Emergency (ER) | payer MEDICARE ==
[2024-02-25] VITALS (12 sets, daily range): BP systolic 99–123; BP diastolic 55–79
[~2024-02-25] VITALS: Ht 162.6 cm; Wt 95.5 kg
[~2024-02-25 14:35] MED LIST changes: +CEPHALEXIN500 MG PO; +IMODIUM A-D2 M3 PO; +METRONIDAZOLE500 MG PO
[2024-02-25 15:09] LABS: BASO% 0.4 % (0-3); EOS% 1.1 % (0-8); HEMATOCRIT 43.5 % (37.0-47.0); HEMOGLOBIN 14.1 g/dl (12.0-16.0); LYMPH% 43.8 % (15-41); MEAN CELL VOLUME 98.4 fL CALC (80.0-100.0); MEAN CORPUSCULAR HGB 31.9 pG CALC (26.0-32.0); MEAN CORPUSCULAR HGB CONC 32.4 g/dL CAL (32.0-36.0); MONO% 7.7 % (2-13); NEUT# 3.94 thou/uL (2.00-7.15); RED BLOOD COUNT 4.42 mill/uL (4.20-5.60); RED CELL DISTRI WIDTH 13.2 % (11.5-15.5)
[2024-02-25 15:10] LABS: URINE BILIRUBIN - DIPSTICK Negative (NEGATIVE); URINE BLOOD DIPSTICK Negative (NEGATIVE); URINE GLUCOSE - DIPSTICK Negative (NEGATIVE); URINE KETONE Negative (NEGATIVE); URINE LEUK ESTERASE Trace (NEGATIVE); URINE NITRITE - DIPSTICK Negative (Negative); URINE PROTEIN - DIPSTICK Negative (NEG-TRACE); URINE SPECIFIC GRAVITY 1.015; URINE UROBILINOGEN - DIPSTICK 0.2 E.U./dL (0.2)
[2024-02-25 15:15] LABS: URINE COLOR Yellow
[2024-02-25] MEDS ORDERED: LACTATED RINGER'S 1,000 ML IV ONE (15:20)
[2024-02-25 15:36] LABS: ALBUMIN 4.4 g/dL (3.2-5.0); ALKALINE PHOSPHATASE 43 u/l (38-126); ANION GAP 11 (6-22 (CALC)); BILIRUBIN, TOTAL 0.4 mg/dL (0.02-1.3); BUN 6 mg/dL (7-17); BUN/CREATININE RATIO 7 (12-20 (CALC)); CARBON DIOXIDE 27 mmol/l (22-30); CHLORIDE 109 mmol/l (95-108); CREATININE 0.9 mg/dL (0.5-1.0); ESTIMATED GFR 82 ML/MIN (>=90 (CALC)); POTASSIUM 3.5 mmol/l (3.5-5.1); SGOT/AST 44 u/l (14-36); SODIUM 143 mmol/l (137-146); TOTAL PROTEIN 7.1 g/dL (6.3-8.2)
[2024-02-25] MEDS ORDERED: metroNIDAZOLE 500 MG/TAB PO ONE ×2 (16:15→17:15)
[2024-02-25] MEDS ORDERED: FLUCONAZOLE 150 MG/TAB PO ONE (16:35)
== END 2024-02-25 18:09 | disposition home or self-care (01) ==
LOC: ED 14:35
PROVIDERS: Nurse Practitioner
DX: G40.909 Epilepsy, unspecified, not intractable, without status epilepticus (principal); K75.81 Nonalcoholic steatohepatitis (NASH); M06.9 Rheumatoid arthritis, unspecified; F17.200 Nicotine dependence, unspecified, uncomplicated; Z86.73 Personal history of transient ischemic attack (TIA), and cerebral infarction without residual deficits
CPT/HCPCS: J1953

== ENCOUNTER 2024-04-13 21:15 | Emergency (ER) | payer MEDICARE, MEDICAID ==
[~2024-04-13] VITALS: Ht 162.6 cm; Wt 102.0 kg
[2024-04-13 21:20] VITALS: BP 148/106
[2024-04-13] MEDS ORDERED: DICLOFENAC SODIUM 75 MG/TAB PO ONE (21:35)
[2024-04-13] MEDS ORDERED: oxyCODONE 10MG/APAP 325 MG 1 COMBO TAB PO ONE (21:35)
[2024-04-13 22:01] VITALS: BP 117/98
[2024-04-13 23:01] VITALS: BP 112/77
[2024-04-14 00:01] VITALS: BP 128/82
[2024-04-14 00:20] VITALS: BP 128/82
== END 2024-04-14 00:20 | disposition home or self-care (01) ==
LOC: ED 21:15
DX: S50.312A Abrasion of left elbow, initial encounter (principal); S50.812A Abrasion of left forearm, initial encounter; S80.812A Abrasion, left lower leg, initial encounter; M25.512 Pain in left shoulder; R07.89 Other chest pain; F17.200 Nicotine dependence, unspecified, uncomplicated; W17.89XA Other fall from one level to another, initial encounter; Z86.73 Personal history of transient ischemic attack (TIA), and cerebral infarction without residual deficits

== ENCOUNTER 2024-04-30 07:07 | Day surgery (SDC) | payer MEDICARE ==
[~2024-04-30] VITALS: Ht 165.1 cm; Wt 99.8 kg
[2024-04-30] MEDS ORDERED: SODIUM CHLORIDE 0.9% 10 ML SYR ONE (07:17)
[2024-04-30] MEDS ORDERED: MIDAZOLAM HCL 2 MG/2 ML VIAL ONE (08:01)
[2024-04-30] MEDS ORDERED: LIDOCAINE HCL 1% (10MG/ML) 100 MG/10 ML MDV ONE (08:23)
[2024-04-30] MEDS ORDERED: TRIAMCINOLONE ACETONIDE 40 MG/ML ML ONE (08:23)
[2024-04-30] MEDS ORDERED: BUPIVACAINE HCL PF 0.5 % 50 MG/10 ML SDV ONE (08:23)
[2024-04-30 09:13] VITALS: BP 141/97
== END 2024-04-30 08:36 | disposition home or self-care (01) ==
LOC: ORM 07:07
PROVIDERS: ATTEND Student in an Organized Health Care Education/Training Program
DX: G89.4 Chronic pain syndrome (principal); M46.1 Sacroiliitis, not elsewhere classified; M06.9 Rheumatoid arthritis, unspecified; M54.16 Radiculopathy, lumbar region; M47.816 Spondylosis without myelopathy or radiculopathy, lumbar region; M62.838 Other muscle spasm; M54.12 Radiculopathy, cervical region; M25.59 Pain in other specified joint; M25.561 Pain in right knee
CPT/HCPCS: J3301